=== PATIENT | male | born 1965 | race Caucasian/White ===

== ENCOUNTER 2017-07-09 10:49 | Emergency (ER) | payer MEDICAID ==
[~2017-07-09] VITALS: Ht 180.3 cm; Wt 70.0 kg
[~2017-07-09 10:49] MED LIST: ALPR0.25 PO; AMIO100T4 PO; APIX2.5T PO; ASPI325T80 PO; GABA300C10 PO; METO25TA35 PO; NAPR-856 PO; NICO-487 TD; TRAM-47 PO
[2017-07-09] MEDS ORDERED: SODIUM CHLORIDE 0.9% 1,000ML IVBOLUS ONE (11:30)
[2017-07-09] MEDS ORDERED: LORazepam 2 MG/ML, 1ML IVPush ONE ×2 (11:30→15:30)
[2017-07-09] MEDS ORDERED: ONDANSETRON 2MG/ML, 2ML IVPush ONE (11:30)
[2017-07-09] MEDS ORDERED: THIAMINE 100MG TABLET PO ONE (11:30)
[2017-07-09] MEDS ORDERED: ONDANSETRON 2MG/ML, 2ML ONE (11:36)
[2017-07-09] MEDS ORDERED: THIAMINE 100MG TABLET ONE (11:36)
[2017-07-09] MEDS ORDERED: LORazepam 2 MG/ML, 1ML ONE ×2 (11:36→15:15)
[2017-07-09 11:57] LABS: ALANINE AMINOTRANSFERASE 139 U/L (12-78); ALBUMIN 3.4 g/dL (3.4-5.0); ANION GAP 13 mmol/L (5-15); CALCIUM 7.7 mg/dL (8.5-10.1); CHLORIDE 97 mmol/L (98-107); CREATININE 0.66 mg/dL (0.7-1.3)
[2017-07-09 11:59] LABS: ALKALINE PHOSPHATASE 122 U/L (45-117); BILIRUBIN,TOTAL 0.7 mg/dL (0.2-1.0); TOTAL PROTEIN 6.7 g/dL (6.4-8.2)
[2017-07-09 12:08] LABS: MEAN CORPUSCULAR HEMOGLOBIN 31.8 pg (27.5-34.5); MEAN CORPUSCULAR VOLUME 93.5 fL (81-97); MEAN PLATELET VOLUME 8.7 fL (7.4-10.4); PLATELET COUNT 110 x10^3/uL (130-400); RED BLOOD COUNT 5.05 x10^6/uL (4.38-5.82); RED CELL DISTRIBUTION WIDTH 15.6 % (9.4-14.8)
[2017-07-09 12:09] LABS: BASOPHILS # (AUTO) 0.03 x10^3/uL (0-0.1); BASOPHILS % (AUTO) 0 % (0-1); EOSINOPHILS # (AUTO) 0.01 x10^3/uL (0-0.4); EOSINOPHILS % (AUTO) 0 % (1-7); LYMPHOCYTES # (AUTO) 1.73 x10^3/uL (1-3.4); LYMPHOCYTES % (AUTO) 23 % (22-44); MD SCAN; MONOCYTES % (AUTO) 8 % (2-9); NEUTROPHILS # (AUTO) 5.25 x10^3/uL (1.8-6.8); NEUTROPHILS % (AUTO) 69 % (42-75)
[2017-07-09] MEDS ORDERED: POTASSIUM CHLORIDE 20 MEQ, MAGNESIUM SULFATE 1 GM, FOLIC ACID 1 MG, THIAMINE 100 MG, MV... IV ONE (12:30)
[2017-07-09] MEDS ORDERED: POTASSIUM CHLORIDE 20 MEQ TAB.ER.PRT PO ONE (12:30)
[2017-07-09] MEDS ORDERED: FAMOTIDINE 20 MG/2 ML IVPush ONE (13:00)
[2017-07-09] MEDS ORDERED: MAALOX/HYOSCYAMINE/LIDOCAINE 45 ML BTL PO ONE (13:00)
[2017-07-09] MEDS ORDERED: FAMOTIDINE 20 MG/2 ML ONE (13:01)
[2017-07-09] MEDS ORDERED: MAALOX/HYOSCYAMINE/LIDOCAINE 45 ML BTL ONE (13:01)
[2017-07-09 15:47] LABS: AMPHETAMINE SCREEN, URINE Negative (Negative); BARBITURATE SCREEN, URINE Negative (Negative); BENZODIAZEPINE SCREEN, URINE Negative (Negative); CANNABINOID SCREEN, URINE Negative (Negative); COCAINE SCREEN, URINE Negative (Negative); METHADONE SCREEN, URINE Negative (Negative); OPIATE SCREEN, URINE Negative (Negative)
[2017-07-09 17:15] VITALS: BP 112/70
== END 2017-07-09 17:17 | disposition home or self-care (01) ==
LOC: ED 11:29
DX: F10.220 Alcohol dependence with intoxication, uncomplicated (principal); F17.200 Nicotine dependence, unspecified, uncomplicated; I10 Essential (primary) hypertension; I48.91 Unspecified atrial fibrillation; J44.9 Chronic obstructive pulmonary disease, unspecified
CPT/HCPCS: 36415; 80053; 80307; 83690; 85025; 96361; 96365; 96366; 96375; 96376; 99285; J2060; J2405; J3411; J3475; J3480; J7030; J7042; S0028

== ENCOUNTER 2017-07-25 05:45 | Inpatient (IN) | payer MEDICAID ==
[~2017-07-25] VITALS: Ht 180.3 cm; Wt 69.7 kg
[2017-07-25] MEDS ORDERED: SODIUM CHLORIDE 0.9% 1,000ML IVBOLUS ONE (06:00)
[2017-07-25] MEDS ORDERED: THIAMINE 100 MG in SODIUM CHLORIDE 0.9% 50 ML IVPB ONE (06:00)
[2017-07-25] MEDS ORDERED: LORazepam 2 MG/ML, 1ML IVPush PRN (06:00)
[2017-07-25] MEDS ORDERED: ONDANSETRON 2MG/ML, 2ML IVPush ONE (06:00)
[2017-07-25] MEDS ORDERED: SODIUM CHLORIDE FLUSH 10ML SYR IVF ONE (06:00)
[2017-07-25] MEDS ORDERED: ONDANSETRON 2MG/ML, 2ML ONE (06:02)
[2017-07-25] MEDS ORDERED: LORazepam 2 MG/ML, 1ML ONE (06:02)
[2017-07-25 06:29] LABS: ALANINE AMINOTRANSFERASE 170 U/L (12-78); ALBUMIN 3.4 g/dL (3.4-5.0); ANION GAP 10 mmol/L (5-15); CALCIUM 8.1 mg/dL (8.5-10.1); CHLORIDE 111 mmol/L (98-107); CREATININE 0.77 mg/dL (0.7-1.3)
[2017-07-25 06:32] LABS: ALKALINE PHOSPHATASE 141 U/L (45-117); BILIRUBIN,TOTAL 0.3 mg/dL (0.2-1.0)
[2017-07-25 06:37] LABS: MEAN CORPUSCULAR HEMOGLOBIN 31.8 pg (27.5-34.5); MEAN CORPUSCULAR HGB CONC 33.9 g/dL (33.2-36.2); MEAN CORPUSCULAR VOLUME 93.8 fL (81-97); MEAN PLATELET VOLUME 7.7 fL (7.4-10.4); PLATELET COUNT 280 x10^3/uL (130-400); RED BLOOD COUNT 4.93 x10^6/uL (4.38-5.82); RED CELL DISTRIBUTION WIDTH 17.5 % (9.4-14.8)
[2017-07-25 06:54] LABS: MD YES
[2017-07-25 06:57] LABS: LYMPH#(MANUAL) 2.02 x10^3/uL (1-3.4); LYMPHS% (MANUAL) 47 % (22-44); MONOS% (MANUAL) 7 % (2-9); SEG#(MANUAL) 1.98 x10^3/uL (1.8-6.8); SEGS% (MANUAL) 46 % (42-75)
[2017-07-25 06:58] LABS: ANISOCYTOSIS 1+
[2017-07-25 06:59] LABS: <PLATELET ESTIMATE> ADEQUATE; <PLT MORPHOLOGY> NORMAL PLT MORPH
[2017-07-25 07:05] LABS: INTERNATIONAL NORMALIZED RATIO 0.97 (0.93-1.1)
[2017-07-25] MEDS ORDERED: LORazepam 1MG TABLET PO PRN ×4 (08:30→18:00)
[2017-07-25] MEDS ORDERED: THIAMINE 200 MG in DEXTROSE 5% 50 ML IVPB ONE (08:30)
[2017-07-25] MEDS ORDERED: DIPHENHYDRAMINE 50 MG CAPSULE PO PRN (08:30)
[2017-07-25] MEDS ORDERED: FOLIC ACID 5 MG/ML IM ONE (08:30)
[2017-07-25] MEDS ORDERED: CHLORDIAZEPOXIDE 25 MG CAPSULE PO PRN ×2 (08:30)
[2017-07-25] MEDS: ENOXAPARIN 40 MG/0.4 ML SQ SCH ×2 (08:30→09:12)
[2017-07-25] MEDS ORDERED: LABETALOL 5MG/ML, 20ML IV PRN (08:30)
[2017-07-25] MEDS ORDERED: PROMETHAZINE 12.5 MG SUPP PR PRN (08:30)
[2017-07-25] MEDS ORDERED: ACETAMINOPHEN 325 MG TABLET PO PRN (08:30)
[2017-07-25 08:44] VITALS: BP 122/74
[2017-07-25] MEDS: MULTIVITAMINS/MINERALS TABLET PO SCH (09:00)
[2017-07-25] MEDS: MAGNESIUM CHLORIDE 64 MG TABLET.DR PO SCH ×3 (09:11→21:00)
[2017-07-25] MEDS: PROMETHAZINE 25MG TABLET PO PRN (09:11)
[2017-07-25] MEDS: CHLORDIAZEPOXIDE 25 MG CAPSULE PO PRN ×2 (09:21→16:29)
[2017-07-25] MEDS: GABAPENTIN 300 MG CAPSULE PO SCH ×3 (09:21→21:00)
[2017-07-25] MEDS: METOPROLOL TARTRATE 25 MG TABLET PO SCH (09:21)
[2017-07-25] MEDS ORDERED: THIAMINE 100MG TABLET PO ONE (09:30)
[2017-07-25] MEDS ORDERED: FOLIC ACID 1 MG TABLET PO ONE (09:30)
[2017-07-25] MEDS: NS + 40MEQ KCL 1,000 ML IV SCH ×2 (10:39→16:30)
[2017-07-25] MEDS: CHLORDIAZEPOXIDE 10 MG CAPSULE PO PRN ×2 (11:57→14:04)
[2017-07-25 13:43] VITALS: BP 105/63
[2017-07-25] MEDS: ONDANSETRON 2MG/ML, 2ML IV PRN ×2 (14:58→21:47)
[2017-07-25] MEDS ORDERED: LORazepam 0.5MG TABLET PO PRN (18:00)
[2017-07-25] MEDS ORDERED: LORazepam 2 MG/ML, 1ML IV PRN ×3 (18:00)
[2017-07-25] MEDS: LORazepam 2 MG/ML, 1ML IV PRN ×2 (18:05→21:58)
[2017-07-25] MEDS: NS + 20MEQ KCL 1,000 ML IV SCH (18:05)
[2017-07-25] MEDS: CHLORDIAZEPOXIDE 25 MG CAPSULE PO SCH (21:00)
[2017-07-25 21:54] VITALS: BP 110/70
[2017-07-26 00:47] VITALS: BP 145/89
[2017-07-26] MEDS: LORazepam 2 MG/ML, 1ML IV PRN ×5 (01:33→14:44)
[2017-07-26] MEDS: PROMETHAZINE 25MG TABLET PO PRN (01:33)
[2017-07-26] MEDS: NS + 20MEQ KCL 1,000 ML IV SCH ×2 (04:15→14:23)
[2017-07-26 05:28] LABS: ALANINE AMINOTRANSFERASE 125 U/L (12-78); ALBUMIN 2.9 g/dL (3.4-5.0); ANION GAP 8 mmol/L (5-15); CALCIUM 8.2 mg/dL (8.5-10.1); CHLORIDE 106 mmol/L (98-107); CREATININE 0.65 mg/dL (0.7-1.3)
[2017-07-26 05:29] LABS: ALKALINE PHOSPHATASE 118 U/L (45-117); BILIRUBIN,TOTAL 0.9 mg/dL (0.2-1.0); TOTAL PROTEIN 6.1 g/dL (6.4-8.2)
[2017-07-26] MEDS ORDERED: NICOTINE 21 MG/24 HR PATCH.TD24 TD SCH (05:30)
[2017-07-26 05:33] LABS: BASOPHILS # (AUTO) 0.04 x10^3/uL (0-0.1); BASOPHILS % (AUTO) 1 % (0-1); EOSINOPHILS # (AUTO) 0.03 x10^3/uL (0-0.4); EOSINOPHILS % (AUTO) 1 % (1-7); LYMPHOCYTES # (AUTO) 1.88 x10^3/uL (1-3.4); LYMPHOCYTES % (AUTO) 31 % (22-44); MD NO; MEAN CORPUSCULAR HGB CONC 33.8 g/dL (33.2-36.2); MEAN CORPUSCULAR VOLUME 94.6 fL (81-97); MEAN PLATELET VOLUME 7.9 fL (7.4-10.4); MONOCYTES # (AUTO) 0.93 x10^3/uL (0.2-0.8); MONOCYTES % (AUTO) 15 % (2-9); NEUTROPHILS # (AUTO) 3.18 x10^3/uL (1.8-6.8); NEUTROPHILS % (AUTO) 53 % (42-75); PLATELET COUNT 224 x10^3/uL (130-400); RED BLOOD COUNT 4.58 x10^6/uL (4.38-5.82); RED CELL DISTRIBUTION WIDTH 16.6 % (9.4-14.8)
[2017-07-26 07:57] VITALS: BP 116/78
[2017-07-26] MEDS: MAGNESIUM CHLORIDE 64 MG TABLET.DR PO SCH ×2 (08:20→16:39)
[2017-07-26] MEDS: ENOXAPARIN 40 MG/0.4 ML SQ SCH (08:20)
[2017-07-26] MEDS: GABAPENTIN 300 MG CAPSULE PO SCH ×2 (08:21→16:39)
[2017-07-26] MEDS: MULTIVITAMINS/MINERALS TABLET PO SCH (08:21)
[2017-07-26] MEDS: METOPROLOL TARTRATE 25 MG TABLET PO SCH (08:21)
[2017-07-26] MEDS: CHLORDIAZEPOXIDE 25 MG CAPSULE PO SCH ×2 (10:32→16:39)
[2017-07-26 12:50] LABS: CLOSTRIDIUM DIFFICILE ANTIGEN NEGATIVE; CLOSTRIDIUM DIFFICILE TOXIN NEGATIVE (Negative)
[2017-07-26 13:59] VITALS: BP 123/86
[2017-07-26] MEDS ORDERED: CHLORDIAZEPOXIDE 25 MG CAPSULE PO SCH (16:00)
[2017-07-27] MEDS ORDERED: CHLORDIAZEPOXIDE 25 MG CAPSULE PO SCH (16:00)
== END 2017-07-26 17:10 | disposition left against medical advice (07) | DRG 439 ==
LOC: ED 05:59 → EDIP 07:30 → 4WST 08:38
PROVIDERS: ADMIT Internal Medicine; ATTEND Internal Medicine
DX: K85.20 Alcohol induced acute pancreatitis without necrosis or infection (principal); F10.239 Alcohol dependence with withdrawal, unspecified; D68.59 Other primary thrombophilia; G62.9 Polyneuropathy, unspecified; I48.91 Unspecified atrial fibrillation; F10.229 Alcohol dependence with intoxication, unspecified; E87.6 Hypokalemia; I10 Essential (primary) hypertension; J44.9 Chronic obstructive pulmonary disease, unspecified; R73.9 Hyperglycemia, unspecified; Z88.5 Allergy status to narcotic agent; Z91.19 Patient's noncompliance with other medical treatment and regimen; Z88.8 Allergy status to other drugs, medicaments and biological substances; Z79.82 Long term (current) use of aspirin; Z79.899 Other long term (current) drug therapy
CPT/HCPCS: 36415; 80053; 80307; 82962; 83690; 83735; 84100; 85025; 85610; 87324; 93005; J1650; J2405; J3480; Q0169; J2060; J7030

== ENCOUNTER 2017-08-28 04:35 | Inpatient (IN) | payer MEDICAID ==
[~2017-08-28] VITALS: Ht 180.3 cm; Wt 68.4 kg
[2017-08-28] MEDS ORDERED: METOPROLOL 1 MG/ML, 5ML IVPush STA (05:13)
[2017-08-28] MEDS ORDERED: METOPROLOL 1 MG/ML, 5ML ONE ×2 (05:16→10:07)
[2017-08-28] MEDS ORDERED: FENTANYL PF 100 MCG/2ML ONE ×2 (05:20→08:14)
[2017-08-28] MEDS: FENTANYL PF 100 MCG/2ML IVPush PRN ×2 (05:26→08:19)
[2017-08-28 05:46] LABS: BASOPHILS # (AUTO) 0.03 x10^3/uL (0-0.1); BASOPHILS % (AUTO) 1 % (0-1); EOSINOPHILS # (AUTO) 0.02 x10^3/uL (0-0.4); EOSINOPHILS % (AUTO) 0 % (1-7); LYMPHOCYTES # (AUTO) 2.44 x10^3/uL (1-3.4); LYMPHOCYTES % (AUTO) 42 % (22-44); MD NO; MEAN CORPUSCULAR HEMOGLOBIN 32.9 pg (27.5-34.5); MEAN CORPUSCULAR HGB CONC 34.1 g/dL (33.2-36.2); MEAN CORPUSCULAR VOLUME 96.6 fL (81-97); MEAN PLATELET VOLUME 8.5 fL (7.4-10.4); MONOCYTES # (AUTO) 0.64 x10^3/uL (0.2-0.8); MONOCYTES % (AUTO) 11 % (2-9); NEUTROPHILS # (AUTO) 2.76 x10^3/uL (1.8-6.8); NEUTROPHILS % (AUTO) 47 % (42-75); PLATELET COUNT 119 x10^3/uL (130-400); RED BLOOD COUNT 4.78 x10^6/uL (4.38-5.82); RED CELL DISTRIBUTION WIDTH 17.3 % (9.4-14.8)
[2017-08-28] MEDS ORDERED: LORazepam 2 MG/ML, 1ML ONE ×3 (05:53→10:30)
[2017-08-28 05:58] LABS: ALBUMIN 3.3 g/dL (3.4-5.0); ANION GAP 11 mmol/L (5-15); CALCIUM 7.8 mg/dL (8.5-10.1); CHLORIDE 106 mmol/L (98-107); CREATININE 0.66 mg/dL (0.7-1.3)
[2017-08-28] MEDS ORDERED: LORazepam 2 MG/ML, 1ML IVPush ONE ×2 (06:00→09:00)
[2017-08-28 06:01] LABS: TROPONIN I < 0.015 ng/mL (0.000-0.045)
[2017-08-28] MEDS ORDERED: LORazepam 2 MG/ML, 1ML IVPush PRN (08:30)
[2017-08-28] MEDS ORDERED: METOPROLOL 1 MG/ML, 5ML IVPush ONE (10:30)
[2017-08-28] MEDS ORDERED: VERAPAMIL 2.5 MG/ML, 2ML IVPush ONE (10:30)
[2017-08-28 10:32] LABS: ALBUMIN 3.2 g/dL (3.4-5.0); BILIRUBIN, DIRECT 0.2 mg/dL (0.1-0.2)
[2017-08-28 10:34] LABS: BILIRUBIN,INDIRECT 0.5 mg/dL (0.0-2.0); BILIRUBIN,TOTAL 0.7 mg/dL (0.2-1.0); TOTAL PROTEIN 6.9 g/dL (6.4-8.2)
[2017-08-28] MEDS ORDERED: VERAPAMIL 2.5 MG/ML, 2ML ONE (10:49)
[2017-08-28] MEDS ORDERED: ESMOLOL/NS PMX 250 ML IV PRN (11:00)
[2017-08-28] MEDS ORDERED: LORazepam 1MG TABLET PO PRN ×2 (11:30)
[2017-08-28] MEDS ORDERED: LORazepam 2 MG/ML, 1ML IV PRN ×3 (11:30)
[2017-08-28] MEDS ORDERED: LORazepam 0.5MG TABLET PO PRN (11:30)
[2017-08-28] MEDS ORDERED: ONDANSETRON 2MG/ML, 2ML IVPush PRN (12:00)
[2017-08-28 12:20] VITALS: BP 109/76
[2017-08-28] MEDS ORDERED: SUCRALFATE 1 GM/10 ML UDC ONE (12:41)
[2017-08-28] MEDS ORDERED: NICOTINE 14MG/24 HR PATCH.TD24 ONE (12:41)
[2017-08-28] MEDS ORDERED: ENOXAPARIN 40 MG/0.4 ML ONE (12:41)
[2017-08-28] MEDS ORDERED: CHLORDIAZEPOXIDE 5 MG CAPSULE ONE ×3 (12:42→19:48)
[2017-08-28] MEDS ORDERED: LORazepam 1MG TABLET ONE (12:43)
[2017-08-28] MEDS: ENOXAPARIN 40 MG/0.4 ML SQ SCH (12:44)
[2017-08-28] MEDS: LORazepam 1MG TABLET PO PRN ×2 (12:45→17:24)
[2017-08-28] MEDS: CHLORDIAZEPOXIDE 25 MG CAPSULE PO SCH ×3 (12:45→19:53)
[2017-08-28] MEDS: NICOTINE 14MG/24 HR PATCH.TD24 TD SCH (12:46)
[2017-08-28] MEDS: SUCRALFATE 1 GM/10 ML UDC PO SCH ×3 (12:46→19:53)
[2017-08-28] MEDS: LORazepam 2 MG/ML, 1ML IV PRN ×2 (14:37→23:55)
[2017-08-28] MEDS: SODIUM CHLORIDE 0.9% 1,000 ML IV SCH (14:51)
[2017-08-28] MEDS ORDERED: DILTIAZEM 30 MG TABLET PO SCH (15:00)
[2017-08-28] MEDS ORDERED: OMNIPAQUE 350 MG/ML, 150 ML BOTTLE ONE (16:56)
[2017-08-28] MEDS: POTASSIUM CHLORIDE 20 MEQ, MAGNESIUM SULFATE 1 GM, THIAMINE 100 MG, FOLIC ACID 1 MG, MV... IV SCH (17:24)
[2017-08-28] MEDS ORDERED: MAGNESIUM SULFATE PMX 2GM/50ML 50 ML IV ONE (17:30)
[2017-08-28] MEDS: METOPROLOL TARTRATE 25 MG TABLET PO SCH (17:35)
[2017-08-28] MEDS ORDERED: METOPROLOL TARTRATE 25 MG TABLET PO SCH (18:00)
[2017-08-28 18:47] VITALS: BP 123/85
[2017-08-28] MEDS: ONDANSETRON ODT 4 MG PO PRN (18:49)
[2017-08-28 19:32] LABS: CLOSTRIDIUM DIFFICILE ANTIGEN NEGATIVE; CLOSTRIDIUM DIFFICILE TOXIN NEGATIVE (Negative)
[2017-08-28] MEDS: TAMSULOSIN 0.4 MG CAP.ER.24H PO SCH (19:53)
[2017-08-28] MEDS: DILTIAZEM 30 MG TABLET PO SCH (19:53)
[2017-08-28] MEDS: PANTOPRAZOLE 40 MG IV IVPush SCH (19:54)
[2017-08-29 00:56] VITALS: BP 115/75
[2017-08-29] MEDS: LORazepam 2 MG/ML, 1ML IV PRN ×2 (00:56→14:46)
[2017-08-29] MEDS ORDERED: HALOPERIDOL 5 MG/ML IV ONE (03:00)
[2017-08-29] MEDS: DILTIAZEM 30 MG TABLET PO SCH ×4 (03:13→20:16)
[2017-08-29 05:36] LABS: MEAN CORPUSCULAR HEMOGLOBIN 33.3 pg (27.5-34.5); MEAN CORPUSCULAR HGB CONC 34.5 g/dL (33.2-36.2); MEAN CORPUSCULAR VOLUME 96.7 fL (81-97); RED CELL DISTRIBUTION WIDTH 16.6 % (9.4-14.8)
[2017-08-29 06:24] LABS: BASOPHILS # (AUTO) 0.02 x10^3/uL (0-0.1); BASOPHILS % (AUTO) 1 % (0-1); EOSINOPHILS # (AUTO) 0.01 x10^3/uL (0-0.4); EOSINOPHILS % (AUTO) 0 % (1-7); LYMPHOCYTES # (AUTO) 1.42 x10^3/uL (1-3.4); LYMPHOCYTES % (AUTO) 28 % (22-44); MD SCAN; MEAN PLATELET VOLUME 8.8 fL (7.4-10.4); MONOCYTES # (AUTO) 0.69 x10^3/uL (0.2-0.8); MONOCYTES % (AUTO) 14 % (2-9); NEUTROPHILS # (AUTO) 2.98 x10^3/uL (1.8-6.8); NEUTROPHILS % (AUTO) 58 % (42-75); PLATELET COUNT 95 x10^3/uL (130-400)
[2017-08-29 06:38] LABS: CHLORIDE 105 mmol/L (98-107)
[2017-08-29] MEDS: METOPROLOL TARTRATE 25 MG TABLET PO SCH ×2 (06:39→20:16)
[2017-08-29 06:42] LABS: ALANINE AMINOTRANSFERASE 72 U/L (12-78); ALKALINE PHOSPHATASE 109 U/L (45-117); ANION GAP 10 mmol/L (5-15); CALCIUM 8.1 mg/dL (8.5-10.1); CREATININE 0.49 mg/dL (0.7-1.3); TOTAL PROTEIN 5.9 g/dL (6.4-8.2)
[2017-08-29] MEDS: SUCRALFATE 1 GM/10 ML UDC PO SCH ×4 (07:00→20:16)
[2017-08-29] MEDS ORDERED: PANTOPRAZOLE 40 MG IV IVPush SCH (07:30)
[2017-08-29 08:00] VITALS: BP 111/74
[2017-08-29] MEDS: PANTOPRAZOLE 40 MG IV IVPush SCH ×2 (08:44→20:16)
[2017-08-29] MEDS ORDERED: LORazepam 2 MG/ML, 1ML IV PRN ×4 (09:00→09:30)
[2017-08-29] MEDS ORDERED: LORazepam 0.5MG TABLET PO PRN (09:30)
[2017-08-29] MEDS ORDERED: LORazepam 1MG TABLET PO PRN ×3 (09:30)
[2017-08-29] MEDS: SODIUM CHLORIDE 0.9% 1,000 ML IV SCH ×2 (11:00→20:20)
[2017-08-29] MEDS ORDERED: ESMOLOL/NS PMX 250 ML IV PRN ×2 (11:00)
[2017-08-29] MEDS: NICOTINE 14MG/24 HR PATCH.TD24 TD SCH (11:22)
[2017-08-29] MEDS: ENOXAPARIN 40 MG/0.4 ML SQ SCH (11:25)
[2017-08-29] MEDS: POTASSIUM CHLORIDE 20 MEQ, MAGNESIUM SULFATE 1 GM, THIAMINE 100 MG, FOLIC ACID 1 MG, MV... IV SCH (12:24)
[2017-08-29 13:26] VITALS: BP 117/77
[2017-08-29] MEDS: ONDANSETRON ODT 4 MG PO PRN (14:46)
[2017-08-29 19:30] VITALS: BP 108/79
[2017-08-29] MEDS: TAMSULOSIN 0.4 MG CAP.ER.24H PO SCH (20:16)
[2017-08-30 01:12] VITALS: BP 135/88
[2017-08-30] MEDS: DILTIAZEM 30 MG TABLET PO SCH ×2 (02:46→07:57)
[2017-08-30] MEDS: LORazepam 2 MG/ML, 1ML IV PRN ×9 (04:14→22:14)
[2017-08-30] MEDS: METOPROLOL TARTRATE 25 MG TABLET PO SCH ×2 (04:22→16:06)
[2017-08-30] MEDS: SUCRALFATE 1 GM/10 ML UDC PO SCH ×4 (04:23→20:32)
[2017-08-30 05:30] LABS: CHLORIDE 105 mmol/L (98-107)
[2017-08-30 05:44] LABS: ANION GAP 10 mmol/L (5-15); CALCIUM 7.8 mg/dL (8.5-10.1)
[2017-08-30] MEDS: SODIUM CHLORIDE 0.9% 1,000 ML IV SCH ×2 (06:12→23:39)
[2017-08-30 06:43] LABS: BASOPHILS # (AUTO) 0.04 x10^3/uL (0-0.1); BASOPHILS % (AUTO) 1 % (0-1); EOSINOPHILS # (AUTO) 0.03 x10^3/uL (0-0.4); EOSINOPHILS % (AUTO) 1 % (1-7); LYMPHOCYTES # (AUTO) 1.22 x10^3/uL (1-3.4); LYMPHOCYTES % (AUTO) 21 % (22-44); MD SCAN; MEAN CORPUSCULAR HEMOGLOBIN 32.8 pg (27.5-34.5); MEAN CORPUSCULAR HGB CONC 34.1 g/dL (33.2-36.2); MEAN CORPUSCULAR VOLUME 96.3 fL (81-97); MEAN PLATELET VOLUME 9.2 fL (7.4-10.4); MONOCYTES # (AUTO) 0.88 x10^3/uL (0.2-0.8); MONOCYTES % (AUTO) 15 % (2-9); NEUTROPHILS # (AUTO) 3.58 x10^3/uL (1.8-6.8); NEUTROPHILS % (AUTO) 62 % (42-75); PLATELET COUNT 105 x10^3/uL (130-400); RED BLOOD COUNT 4.46 x10^6/uL (4.38-5.82); RED CELL DISTRIBUTION WIDTH 15.9 % (9.4-14.8)
[2017-08-30 07:38] VITALS: BP 128/86
[2017-08-30] MEDS: PANTOPRAZOLE 40 MG IV IVPush SCH (07:54)
[2017-08-30] MEDS: ALUMINUM/MAG/SIMETHICONE 30 ML UDC PO SCH ×3 (09:28→20:32)
[2017-08-30] MEDS: ENOXAPARIN 40 MG/0.4 ML SQ SCH (11:16)
[2017-08-30] MEDS: NICOTINE 14MG/24 HR PATCH.TD24 TD SCH (11:24)
[2017-08-30] MEDS: NEUTRA PHOS K 250 MG TABLET PO SCH ×3 (11:25→20:32)
[2017-08-30] MEDS: POTASSIUM CHLORIDE 20 MEQ, MAGNESIUM SULFATE 1 GM, THIAMINE 100 MG, FOLIC ACID 1 MG, MV... IV SCH (12:03)
[2017-08-30] MEDS: DILTIAZEM 120 MG CAP.ER.24H PO SCH (12:46)
[2017-08-30 14:06] LABS: OCCULT BLOOD NEGATIVE (NEGATIVE)
[2017-08-30 15:00] VITALS: BP 133/92
[2017-08-30] MEDS ORDERED: LORazepam 20 MG in DEXTROSE 5% 240 ML IV SCH (16:30)
[2017-08-30] MEDS ORDERED: LORazepam 2 MG/ML, 1ML IV PRN ×3 (18:00)
[2017-08-30] MEDS: ONDANSETRON ODT 4 MG PO PRN (18:23)
[2017-08-30 19:48] VITALS: BP 116/77
[2017-08-30] MEDS: PANTOPROZOLE 40MG TABLET PO SCH (20:32)
[2017-08-30] MEDS: TAMSULOSIN 0.4 MG CAP.ER.24H PO SCH (20:32)
[2017-08-31 00:58] VITALS: BP 107/75
[2017-08-31] MEDS: LORazepam 2 MG/ML, 1ML IV PRN ×3 (02:30→06:13)
[2017-08-31 05:38] LABS: BASOPHILS # (AUTO) 0.06 x10^3/uL (0-0.1); BASOPHILS % (AUTO) 1 % (0-1); EOSINOPHILS # (AUTO) 0.07 x10^3/uL (0-0.4); EOSINOPHILS % (AUTO) 1 % (1-7); LYMPHOCYTES # (AUTO) 1.49 x10^3/uL (1-3.4); LYMPHOCYTES % (AUTO) 24 % (22-44); MD NO; MEAN CORPUSCULAR HEMOGLOBIN 32.4 pg (27.5-34.5); MEAN CORPUSCULAR HGB CONC 33.6 g/dL (33.2-36.2); MEAN CORPUSCULAR VOLUME 96.5 fL (81-97); MONOCYTES # (AUTO) 0.92 x10^3/uL (0.2-0.8); MONOCYTES % (AUTO) 15 % (2-9); NEUTROPHILS # (AUTO) 3.73 x10^3/uL (1.8-6.8); NEUTROPHILS % (AUTO) 60 % (42-75); PLATELET COUNT 112 x10^3/uL (130-400); RED BLOOD COUNT 4.38 x10^6/uL (4.38-5.82); RED CELL DISTRIBUTION WIDTH 15.8 % (9.4-14.8)
[2017-08-31 05:46] LABS: CHLORIDE 107 mmol/L (98-107)
[2017-08-31 05:47] VITALS: BP 120/86
[2017-08-31 05:59] LABS: ALANINE AMINOTRANSFERASE 53 U/L (12-78); ALBUMIN 2.8 g/dL (3.4-5.0); ALKALINE PHOSPHATASE 107 U/L (45-117); ANION GAP 9 mmol/L (5-15); BILIRUBIN,TOTAL 0.7 mg/dL (0.2-1.0); CALCIUM 8.2 mg/dL (8.5-10.1); CREATININE 0.69 mg/dL (0.7-1.3); TOTAL PROTEIN 5.9 g/dL (6.4-8.2)
[2017-08-31] MEDS: METOPROLOL TARTRATE 25 MG TABLET PO SCH (06:13)
[2017-08-31] MEDS: SUCRALFATE 1 GM/10 ML UDC PO SCH ×2 (06:13→12:07)
[2017-08-31] MEDS: ALUMINUM/MAG/SIMETHICONE 30 ML UDC PO SCH ×2 (06:13→11:00)
[2017-08-31 06:35] VITALS: BP 121/84
[2017-08-31] MEDS: PANTOPROZOLE 40MG TABLET PO SCH (07:53)
[2017-08-31] MEDS: DILTIAZEM 120 MG CAP.ER.24H PO SCH (07:53)
[2017-08-31] MEDS: NICOTINE 14MG/24 HR PATCH.TD24 TD SCH (07:54)
[2017-08-31] MEDS ORDERED: CHLORDIAZEPOXIDE 25 MG CAPSULE PO PRN ×3 (08:00)
[2017-08-31] MEDS ORDERED: LORazepam 1MG TABLET PO PRN ×4 (08:00)
[2017-08-31] MEDS ORDERED: LORazepam 0.5MG TABLET PO PRN (08:00)
[2017-08-31] MEDS ORDERED: CHLORDIAZEPOXIDE 10 MG CAPSULE PO PRN (08:00)
[2017-08-31] MEDS: ONDANSETRON ODT 4 MG PO PRN (08:09)
[2017-08-31] MEDS: SODIUM CHLORIDE 0.9% 1,000 ML IV SCH (09:39)
[2017-08-31] MEDS: POTASSIUM CHLORIDE 20 MEQ, MAGNESIUM SULFATE 1 GM, THIAMINE 100 MG, FOLIC ACID 1 MG, MV... IV SCH (11:30)
[2017-08-31] MEDS: ENOXAPARIN 40 MG/0.4 ML SQ SCH (12:00)
[2017-08-31] MEDS ORDERED: PANT40TA5 PO (13:30)
[2017-08-31] MEDS ORDERED: NICO-486 TD (13:30)
[2017-08-31] MEDS ORDERED: TAMS-11 PO (13:30)
[2017-08-31] MEDS ORDERED: METO25TA35 PO (13:30)
[2017-08-31] MEDS ORDERED: SUCR1ORA5 PO (13:30)
[2017-08-31] MEDS ORDERED: DILT120C9 PO (13:53)
== END 2017-08-31 15:40 | disposition home or self-care (01) | DRG 432 ==
LOC: ED 07:28 → EDIP 10:29 → 5SO 12:59
PROVIDERS: ADMIT Internal Medicine; ATTEND Internal Medicine
DX: K70.10 Alcoholic hepatitis without ascites (principal); K85.20 Alcohol induced acute pancreatitis without necrosis or infection; D68.69 Other thrombophilia; D69.6 Thrombocytopenia, unspecified; E83.39 Other disorders of phosphorus metabolism; E83.51 Hypocalcemia; G62.9 Polyneuropathy, unspecified; I48.2 Chronic atrial fibrillation; F10.239 Alcohol dependence with withdrawal, unspecified; E87.2 Acidosis; R74.0 Nonspecific elevation of levels of transaminase and lactic acid dehydrogenase [LDH]; E87.6 Hypokalemia; F17.210 Nicotine dependence, cigarettes, uncomplicated; D64.9 Anemia, unspecified; K20.9 Esophagitis, unspecified; I10 Essential (primary) hypertension; J44.9 Chronic obstructive pulmonary disease, unspecified; K59.00 Constipation, unspecified; N40.0 Benign prostatic hyperplasia without lower urinary tract symptoms; Z91.14 Patient's other noncompliance with medication regimen; Z79.01 Long term (current) use of anticoagulants; Z80.9 Family history of malignant neoplasm, unspecified; Z82.49 Family history of ischemic heart disease and other diseases of the circulatory system; Z91.19 Patient's noncompliance with other medical treatment and regimen; Z91.81 History of falling; Z88.5 Allergy status to narcotic agent; Z88.8 Allergy status to other drugs, medicaments and biological substances
CPT/HCPCS: 36415; 74022; 74220; 80048; 80053; 80076; 82040; 82272; 83605; 83690; 83735; 83880; 84100; 84484; 85025; 87324; 93005; 96372; 96374; 96375; 96376; J1650; J3010; J3411; J3475; J3480; Q0162; Q9967; C9113; J1630; J2060; J7030

== ENCOUNTER 2017-11-28 04:44 | Emergency (ER) | payer MEDICAID ==
[~2017-11-28] VITALS: Ht 177.8 cm; Wt 74.0 kg
[~2017-11-28 04:44] MED LIST changes: +AMIO200T42 PO; +ASPI-515 PO; +DILT120C9 PO; +FOLI-17 PO; +NALT50TA PO; +NICO-486 TD; +PANT40TA5 PO; +SUCR1ORA5 PO; +TAMS-11 PO; +THIA100T6 PO
[2017-11-28] MEDS ORDERED: THIAMINE 100MG TABLET ONE (05:15)
[2017-11-28] MEDS ORDERED: LORazepam 2 MG/ML, 1ML ONE ×3 (05:16→07:25)
[2017-11-28 05:27] LABS: BASOPHILS # (AUTO) 0.05 x10^3/uL (0-0.1); BASOPHILS % (AUTO) 1 % (0-1); EOSINOPHILS # (AUTO) 0.02 x10^3/uL (0-0.4); EOSINOPHILS % (AUTO) 0 % (1-7); LYMPHOCYTES # (AUTO) 1.57 x10^3/uL (1-3.4); LYMPHOCYTES % (AUTO) 29 % (22-44); MD NO; MEAN CORPUSCULAR HGB CONC 33.8 g/dL (33.2-36.2); MEAN CORPUSCULAR VOLUME 97.6 fL (81-97); MEAN PLATELET VOLUME 7.9 fL (7.4-10.4); MONOCYTES # (AUTO) 0.76 x10^3/uL (0.2-0.8); MONOCYTES % (AUTO) 14 % (2-9); NEUTROPHILS # (AUTO) 3.07 x10^3/uL (1.8-6.8); NEUTROPHILS % (AUTO) 56 % (42-75); PLATELET COUNT 233 x10^3/uL (130-400); RED BLOOD COUNT 4.28 x10^6/uL (4.38-5.82); RED CELL DISTRIBUTION WIDTH 15.3 % (9.4-14.8)
[2017-11-28] MEDS ORDERED: SODIUM CHLORIDE 0.9% 1,000ML IVBOLUS ONE (05:30)
[2017-11-28] MEDS ORDERED: THIAMINE 100MG TABLET PO ONE (05:30)
[2017-11-28] MEDS ORDERED: SODIUM CHLORIDE FLUSH 10ML SYR IVF ONE (05:30)
[2017-11-28] MEDS: LORazepam 2 MG/ML, 1ML IVPush PRN ×3 (05:35→07:26)
[2017-11-28 05:41] LABS: ALBUMIN 3.8 g/dL (3.4-5.0); ANION GAP 12 mmol/L (5-15); CALCIUM 8.8 mg/dL (8.5-10.1); CHLORIDE 107 mmol/L (98-107)
[2017-11-28 05:45] LABS: ALANINE AMINOTRANSFERASE 76 U/L (12-78); ALKALINE PHOSPHATASE 93 U/L (45-117); BILIRUBIN,TOTAL 0.5 mg/dL (0.2-1.0); CREATININE 0.74 mg/dL (0.7-1.3); TOTAL PROTEIN 7.4 g/dL (6.4-8.2)
[2017-11-28 05:49] LABS: TROPONIN I < 0.015 ng/mL (0.000-0.045)
[2017-11-28] MEDS ORDERED: CHLORDIAZEPOXIDE 25 MG CAPSULE ONE (07:54)
[2017-11-28] MEDS ORDERED: CHLORDIAZEPOXIDE 25 MG CAPSULE PO ONE (08:00)
[2017-11-28] MEDS ORDERED: LORazepam 2 MG/ML, 1ML IVPush PRN (08:00)
[2017-11-28 08:46] VITALS: BP 125/90
== END 2017-11-28 08:49 | disposition home or self-care (01) ==
LOC: ED 08:00
DX: R07.89 Other chest pain (principal); F10.239 Alcohol dependence with withdrawal, unspecified; R45.4 Irritability and anger; Z91.19 Patient's noncompliance with other medical treatment and regimen; J44.9 Chronic obstructive pulmonary disease, unspecified; I48.91 Unspecified atrial fibrillation
CPT/HCPCS: 36415; 71045; 80053; 80307; 84484; 85025; 93005; 96374; 96376; 99285; J2060; J7030

== ENCOUNTER 2017-12-08 12:39 | Emergency (ER) | payer MEDICAID ==
[~2017-12-08] VITALS: Ht 180.3 cm; Wt 73.5 kg
[2017-12-08] MEDS ORDERED: DILTIAZEM 125 MG in DEXTROSE 5% 100 ML IV SCH (12:48)
[2017-12-08] MEDS ORDERED: SODIUM CHLORIDE 0.9% 1,000 ML IV ONE (12:48)
[2017-12-08 12:49] VITALS: BP 124/94
[2017-12-08] MEDS ORDERED: THIAMINE 100 MG in SODIUM CHLORIDE 0.9% 50 ML IVPB ONE (13:00)
[2017-12-08] MEDS ORDERED: SODIUM CHLORIDE FLUSH 10ML SYR IVF ONE (13:00)
[2017-12-08] MEDS ORDERED: DILTIAZEM 5 MG/ML, 5ML IV ONE (13:00)
[2017-12-08] MEDS ORDERED: ONDANSETRON 2MG/ML, 2ML IVPush ONE (13:00)
[2017-12-08] MEDS ORDERED: PLEASE ENTER HEIGHT AND WEIGHT MC SCH (13:00)
[2017-12-08] MEDS ORDERED: SODIUM CHLORIDE 0.9% 1,000ML IVBOLUS ONE (13:00)
[2017-12-08 13:09] LABS: BASOPHILS # (AUTO) 0.02 x10^3/uL (0-0.1); BASOPHILS % (AUTO) 0 % (0-1); EOSINOPHILS # (AUTO) 0.03 x10^3/uL (0-0.4); EOSINOPHILS % (AUTO) 1 % (1-7); LYMPHOCYTES % (AUTO) 43 % (22-44); MD NO; MEAN CORPUSCULAR HEMOGLOBIN 33.3 pg (27.5-34.5); MEAN CORPUSCULAR HGB CONC 33.8 g/dL (33.2-36.2); MEAN CORPUSCULAR VOLUME 98.7 fL (81-97); MEAN PLATELET VOLUME 8.1 fL (7.4-10.4); MONOCYTES % (AUTO) 9 % (2-9); NEUTROPHILS # (AUTO) 3.12 x10^3/uL (1.8-6.8); NEUTROPHILS % (AUTO) 47 % (42-75); PLATELET COUNT 159 x10^3/uL (130-400); RED BLOOD COUNT 4.42 x10^6/uL (4.38-5.82); RED CELL DISTRIBUTION WIDTH 15.9 % (9.4-14.8)
[2017-12-08 13:18] LABS: INTERNATIONAL NORMALIZED RATIO 0.94 (0.93-1.1); PROTHROMBIN TIME 9.8 Seconds (9.6-11.5)
[2017-12-08] MEDS ORDERED: ONDANSETRON 2MG/ML, 2ML ONE (13:27)
[2017-12-08 13:34] LABS: ALANINE AMINOTRANSFERASE 57 U/L (12-78); ALBUMIN 3.7 g/dL (3.4-5.0); ANION GAP 11 mmol/L (5-15); CALCIUM 8.3 mg/dL (8.5-10.1); CHLORIDE 110 mmol/L (98-107)
[2017-12-08 13:39] LABS: ALKALINE PHOSPHATASE 99 U/L (45-117); BILIRUBIN,TOTAL 0.4 mg/dL (0.2-1.0); TOTAL PROTEIN 7.1 g/dL (6.4-8.2); TROPONIN I < 0.015 ng/mL (0.000-0.045)
[2017-12-08] MEDS ORDERED: POTASSIUM CHLORIDE 20 MEQ TAB.ER.PRT PO ONE (14:00)
[2017-12-08] MEDS ORDERED: POTASSIUM CHLORIDE 20 MEQ TAB.ER.PRT ONE (14:28)
== END 2017-12-08 15:54 | disposition home or self-care (01) ==
LOC: ED 15:08
DX: F10.120 Alcohol abuse with intoxication, uncomplicated (principal); I10 Essential (primary) hypertension; J44.9 Chronic obstructive pulmonary disease, unspecified; I48.91 Unspecified atrial fibrillation; F41.1 Generalized anxiety disorder
CPT/HCPCS: 36415; 71045; 80053; 83880; 84484; 85025; 85610; 85730; 93005; 96365; 96366; 96375; 99285; J2405; J3411; J7030

== ENCOUNTER 2017-12-20 18:11 | Inpatient (IN) | payer MEDICAID ==
[~2017-12-20] VITALS: Ht 175.3 cm; Wt 76.2 kg
[~2017-12-20 18:11] MED LIST changes: -THIA100T6 PO; +THIA100T67 PO
[2017-12-20] MEDS ORDERED: SODIUM CHLORIDE 0.9% 1,000ML IVBOLUS ONE (18:30)
[2017-12-20] MEDS ORDERED: SODIUM CHLORIDE FLUSH 10ML SYR IVF ONE (18:30)
[2017-12-20] MEDS ORDERED: THIAMINE 100MG TABLET PO ONE (18:30)
[2017-12-20] MEDS ORDERED: LORazepam 2 MG/ML, 1ML ONE ×2 (18:48→20:16)
[2017-12-20] MEDS: LORazepam 2 MG/ML, 1ML IVPush PRN ×2 (18:51→20:20)
[2017-12-20 18:52] LABS: MEAN CORPUSCULAR HEMOGLOBIN 34.1 pg (27.5-34.5); MEAN CORPUSCULAR HGB CONC 34.3 g/dL (33.2-36.2); MEAN CORPUSCULAR VOLUME 99.4 fL (81-97); MEAN PLATELET VOLUME 8.4 fL (7.4-10.4); PLATELET COUNT 201 x10^3/uL (130-400); RED BLOOD COUNT 3.89 x10^6/uL (4.38-5.82); RED CELL DISTRIBUTION WIDTH 16.1 % (9.4-14.8)
[2017-12-20 19:02] LABS: ALBUMIN 3.6 g/dL (3.4-5.0); ANION GAP 10 mmol/L (5-15); CALCIUM 8.9 mg/dL (8.5-10.1); CHLORIDE 105 mmol/L (98-107); CREATININE 0.74 mg/dL (0.7-1.3)
[2017-12-20 19:06] LABS: TROPONIN I < 0.015 ng/mL (0.000-0.045)
[2017-12-20 19:21] LABS: MD YES
[2017-12-20 19:23] LABS: BASOS#(MANUAL) 0.13 x10^3/uL (0-0.1); BASOS% (MANUAL) 2 % (0-1); LYMPH#(MANUAL) 1.15 x10^3/uL (1-3.4); LYMPHS% (MANUAL) 18 % (22-44); MONOS#(MANUAL) 0.38 x10^3/uL (0.3-2.7); MONOS% (MANUAL) 6 % (2-9); SEG#(MANUAL) 4.74 x10^3/uL (1.8-6.8); SEGS% (MANUAL) 74 % (42-75)
[2017-12-20 19:24] LABS: <PLATELET ESTIMATE> ADEQUATE; <PLT MORPHOLOGY> NORMAL PLT MORPH; <RBC MORPHOLOGY> NORMAL
[2017-12-20] MEDS ORDERED: THIAMINE 100MG TABLET ONE (19:29)
[2017-12-20] MEDS ORDERED: POLYETHYLENE GLYCOL 17 GM PACKET PO PRN (20:30)
[2017-12-20] MEDS ORDERED: OXYcodone IR 5MG TABLET PO PRN (20:30)
[2017-12-20] MEDS ORDERED: ENALAPRILAT 1.25 MG/ML, 2ML IVPush PRN (20:30)
[2017-12-20] MEDS ORDERED: PROMETHAZINE 25 MG/ML, 1ML IM PRN (20:30)
[2017-12-20] MEDS ORDERED: LORazepam 2 MG/ML, 1ML IV PRN ×4 (20:30)
[2017-12-20] MEDS ORDERED: DOCUSATE 100 MG CAPSULE PO PRN (20:30)
[2017-12-20] MEDS ORDERED: LORazepam 0.5MG TABLET PO PRN (20:30)
[2017-12-20] MEDS ORDERED: ONDANSETRON 2MG/ML, 2ML IVPush PRN (20:30)
[2017-12-20] MEDS ORDERED: LORazepam 1MG TABLET PO PRN ×4 (20:30)
[2017-12-20] MEDS ORDERED: BISACODYL 10 MG SUPP PR PRN (20:30)
[2017-12-20] MEDS ORDERED: ONDANSETRON ODT 4 MG PO PRN (20:30)
[2017-12-20] MEDS ORDERED: LABETALOL 5MG/ML, 20ML IVPush PRN (20:30)
[2017-12-20 20:52] LABS: FREE T4 (FREE THYROXINE) 0.82 ng/dL (0.76-1.46); THYROID STIMULATING HORMONE 0.925 mIU/L (0.358-3.740)
[2017-12-20 20:55] VITALS: BP 143/86
[2017-12-20 21:06] LABS: HEMOGLOBIN A1C 5.1 % (4.2-6.3)
[2017-12-20] MEDS ORDERED: ASPI-650 PO (21:40)
[2017-12-20] MEDS ORDERED: THIA100T10 PO (21:40)
[2017-12-20] MEDS ORDERED: FOLI-17 PO (21:40)
[2017-12-20] MEDS ORDERED: NALT50TA PO (21:40)
[2017-12-20] MEDS ORDERED: TAMS-11 PO (21:40)
[2017-12-20] MEDS ORDERED: METO50TA6 PO (21:40)
[2017-12-20] MEDS ORDERED: PANT40GR PO (21:40)
[2017-12-20] MEDS: SODIUM CHLORIDE 0.9% 1,000 ML IV SCH (21:51)
[2017-12-20] MEDS: NICOTINE 14MG/24 HR PATCH.TD24 TD SCH (22:04)
[2017-12-20] MEDS: GABAPENTIN 300 MG CAPSULE PO SCH (22:05)
[2017-12-20] MEDS: CHLORDIAZEPOXIDE 25 MG CAPSULE PO SCH ×2 (22:05→22:24)
[2017-12-20] MEDS: HEPARIN 5,000 UNITS/ML, 1ML SQ SCH (22:05)
[2017-12-20] MEDS: POTASSIUM CHLORIDE 20 MEQ, MAGNESIUM SULFATE 2 GM, THIAMINE 100 MG, MVI ADULT 10 ML, FO... IV SCH (22:19)
[2017-12-20] MEDS ORDERED: ALBUTEROL SULFATE 2.5 MG/3 ML NPPB PRN (22:30)
[2017-12-21 01:33] VITALS: BP 127/80
[2017-12-21 01:57] LABS: TROPONIN I < 0.015 ng/mL (0.000-0.045)
[2017-12-21 02:05] LABS: MICROSCOPIC AUTO
[2017-12-21 02:08] LABS: CULTURE INDICATED? YES
[2017-12-21 02:08] LABS: ALANINE AMINOTRANSFERASE 63 U/L (12-78); ALBUMIN 3.1 g/dL (3.4-5.0); ANION GAP 10 mmol/L (5-15); BASOPHILS # (AUTO) 0.01 x10^3/uL (0-0.1); BASOPHILS % (AUTO) 0 % (0-1); CALCIUM 8.5 mg/dL (8.5-10.1); CHLORIDE 108 mmol/L (98-107); CHOLESTEROL, TOTAL 202 mg/dL (140-239); EOSINOPHILS # (AUTO) 0.09 x10^3/uL (0-0.4); EOSINOPHILS % (AUTO) 2 % (1-7); LYMPHOCYTES # (AUTO) 1.64 x10^3/uL (1-3.4); LYMPHOCYTES % (AUTO) 31 % (22-44); MD NO; MEAN CORPUSCULAR HEMOGLOBIN 33.9 pg (27.5-34.5); MEAN CORPUSCULAR HGB CONC 33.9 g/dL (33.2-36.2); MEAN CORPUSCULAR VOLUME 99.9 fL (81-97); MEAN PLATELET VOLUME 8.8 fL (7.4-10.4); MONOCYTES # (AUTO) 0.57 x10^3/uL (0.2-0.8); MONOCYTES % (AUTO) 11 % (2-9); NEUTROPHILS # (AUTO) 3.01 x10^3/uL (1.8-6.8); NEUTROPHILS % (AUTO) 57 % (42-75); PLATELET COUNT 161 x10^3/uL (130-400); RED BLOOD COUNT 3.83 x10^6/uL (4.38-5.82); RED CELL DISTRIBUTION WIDTH 16.4 % (9.4-14.8); TRIGLYCERIDES 88 mg/dL (50-200); VLDL CHOLESTEROL 18 mg/dL (0-25)
[2017-12-21 02:11] LABS: ALKALINE PHOSPHATASE 105 U/L (45-117); BILIRUBIN,TOTAL 0.7 mg/dL (0.2-1.0); CREATININE 0.69 mg/dL (0.7-1.3); HDL CHOL % 51 % (26-37); HDL CHOLESTEROL (DIRECT) 103 mg/dL (40-60); LDL CHOLESTEROL,CALCULATED 81 mg/dL (54-169); LDL/HDL RATIO 0.8 (0.5-3.0); TOTAL PROTEIN 6.1 g/dL (6.4-8.2)
[2017-12-21] MEDS: HEPARIN 5,000 UNITS/ML, 1ML SQ SCH ×3 (06:07→21:02)
[2017-12-21] MEDS: CHLORDIAZEPOXIDE 25 MG CAPSULE PO SCH ×4 (06:07→21:01)
[2017-12-21 06:42] VITALS: BP 136/91
[2017-12-21 07:10] LABS: TROPONIN I < 0.015 ng/mL (0.000-0.045)
[2017-12-21] MEDS ORDERED: AMIODARONE 200 MG TABLET PO SCH (08:00)
[2017-12-21] MEDS ORDERED: ASPIRIN 81 MG TABLET EC PO SCH (09:00)
[2017-12-21] MEDS: TAMSULOSIN 0.4 MG CAP.ER.24H PO SCH (09:09)
[2017-12-21] MEDS: LORazepam 2 MG/ML, 1ML IV PRN ×4 (09:09→22:26)
[2017-12-21] MEDS: PANTOPROZOLE 40MG TABLET PO SCH ×2 (09:10→21:01)
[2017-12-21] MEDS: ASPIRIN 325 MG TABLET PO SCH (09:10)
[2017-12-21] MEDS: AMIODARONE 200 MG TABLET PO SCH ×3 (09:11→21:02)
[2017-12-21] MEDS: METOPROLOL TARTRATE 50 MG TABLET PO SCH ×2 (09:13→21:01)
[2017-12-21] MEDS ORDERED: ALUMINUM/MAG/SIMETHICONE 30 ML UDC PO ONE (10:00)
[2017-12-21] MEDS: SODIUM CHLORIDE 0.9% 1,000 ML IV SCH (11:02)
[2017-12-21 12:30] VITALS: BP 113/76
[2017-12-21 20:16] VITALS: BP 136/88
[2017-12-21] MEDS: GABAPENTIN 300 MG CAPSULE PO SCH (21:01)
[2017-12-21] MEDS: NICOTINE 14MG/24 HR PATCH.TD24 TD SCH (21:02)
[2017-12-21] MEDS: POTASSIUM CHLORIDE 20 MEQ, MAGNESIUM SULFATE 2 GM, THIAMINE 100 MG, MVI ADULT 10 ML, FO... IV SCH (22:26)
[2017-12-22 01:16] VITALS: BP 144/96
[2017-12-22 04:54] LABS: ALANINE AMINOTRANSFERASE 50 U/L (12-78); ANION GAP 6 mmol/L (5-15); CALCIUM 8.5 mg/dL (8.5-10.1); CHLORIDE 112 mmol/L (98-107); CREATININE 0.79 mg/dL (0.7-1.3)
[2017-12-22 04:57] LABS: ALKALINE PHOSPHATASE 98 U/L (45-117); BILIRUBIN,TOTAL 0.5 mg/dL (0.2-1.0); MD SCAN; MEAN CORPUSCULAR HEMOGLOBIN 34.3 pg (27.5-34.5); MEAN CORPUSCULAR HGB CONC 34.1 g/dL (33.2-36.2); MEAN CORPUSCULAR VOLUME 100.5 fL (81-97); MEAN PLATELET VOLUME 9.3 fL (7.4-10.4); PLATELET COUNT 143 x10^3/uL (130-400); RED BLOOD COUNT 3.87 x10^6/uL (4.38-5.82); RED CELL DISTRIBUTION WIDTH 16.6 % (9.4-14.8); TOTAL PROTEIN 6.2 g/dL (6.4-8.2)
[2017-12-22 04:59] LABS: BASOPHILS # (AUTO) 0.01 x10^3/uL (0-0.1); BASOPHILS % (AUTO) 0 % (0-1); EOSINOPHILS # (AUTO) 0.08 x10^3/uL (0-0.4); EOSINOPHILS % (AUTO) 1 % (1-7); LYMPHOCYTES # (AUTO) 1.88 x10^3/uL (1-3.4); LYMPHOCYTES % (AUTO) 34 % (22-44); MONOCYTES % (AUTO) 7 % (2-9); NEUTROPHILS # (AUTO) 3.21 x10^3/uL (1.8-6.8); NEUTROPHILS % (AUTO) 58 % (42-75)
[2017-12-22] MEDS: CHLORDIAZEPOXIDE 25 MG CAPSULE PO SCH (05:52)
[2017-12-22] MEDS: HEPARIN 5,000 UNITS/ML, 1ML SQ SCH (05:52)
[2017-12-22 07:05] VITALS: BP 108/74
[2017-12-22] MEDS ORDERED: METH750T87 PO (07:38)
[2017-12-22] MEDS: AMIODARONE 200 MG TABLET PO SCH (08:00)
[2017-12-22] MEDS: TAMSULOSIN 0.4 MG CAP.ER.24H PO SCH (08:34)
[2017-12-22] MEDS: PANTOPROZOLE 40MG TABLET PO SCH (08:34)
[2017-12-22] MEDS: ASPIRIN 325 MG TABLET PO SCH (08:35)
[2017-12-22] MEDS: METOPROLOL TARTRATE 50 MG TABLET PO SCH (08:35)
[2017-12-22] MEDS ORDERED: CHOLECALCIFEROL 1,000 UNIT TABLET PO SCH (09:00)
== END 2017-12-22 10:52 | disposition home or self-care (01) | DRG 101 ==
LOC: ED 19:59 → EDIP 20:00 → 5SO 20:58 → DCLOUNGE 12-22 10:40
PROVIDERS: ADMIT Internal Medicine; ATTEND Internal Medicine
DX: R56.9 Unspecified convulsions (principal); F10.239 Alcohol dependence with withdrawal, unspecified; D68.69 Other thrombophilia; R07.9 Chest pain, unspecified; J44.9 Chronic obstructive pulmonary disease, unspecified; K21.9 Gastro-esophageal reflux disease without esophagitis; F41.9 Anxiety disorder, unspecified; F17.210 Nicotine dependence, cigarettes, uncomplicated; I10 Essential (primary) hypertension; I48.2 Chronic atrial fibrillation; S16.1XXA Strain of muscle, fascia and tendon at neck level, initial encounter; S60.222A Contusion of left hand, initial encounter; Z80.3 Family history of malignant neoplasm of breast; Z88.5 Allergy status to narcotic agent; Z88.8 Allergy status to other drugs, medicaments and biological substances; Z79.899 Other long term (current) drug therapy; Y92.89 Other specified places as the place of occurrence of the external cause
CPT/HCPCS: 36415; 73130; 99285; J7042; 71045; 72125; 80048; 80053; 80061; 81001; 82040; 82306; 82607; 83036; 83735; 84439; 84443; 84484; 85025; 87086; 93005; 93306; 96361; 96374; 96376; J1644; J3411; J3475; J3480; J2060; J7030

== ENCOUNTER 2018-01-02 15:42 | Emergency (ER) | payer MEDICAID ==
[~2018-01-02] VITALS: Ht 180.3 cm; Wt 71.3 kg
[~2018-01-02 15:42] MED LIST changes: +ASPI-650 PO; +METH750T87 PO; +METO50TA6 PO; +PANT40GR PO; +THIA100T10 PO
[2018-01-02 15:45] VITALS: BP 114/79
== END 2018-01-02 17:05 | disposition home or self-care (01) ==
LOC: ED 16:35
DX: F10.231 Alcohol dependence with withdrawal delirium (principal); Z76.0 Encounter for issue of repeat prescription; I48.91 Unspecified atrial fibrillation; Y90.9 Presence of alcohol in blood, level not specified
CPT/HCPCS: 99283

== ENCOUNTER 2019-09-13 22:55 | Emergency (ER) | payer MEDICAID ==
[~2019-09-13] VITALS: Ht 175.3 cm; Wt 77.2 kg
[~2019-09-13 22:55] MED LIST changes: +DILT120C48 PO; -DILT120C9 PO
[2019-09-13] MEDS ORDERED: SODIUM CHLORIDE 0.9% 1,000ML IVBOLUS ONE (23:30)
[2019-09-13] MEDS ORDERED: LORazepam 2 MG/ML, 1ML IVPush ONE (23:30)
--- NOTE | 2019-09-13 23:37 | NUR ---
Pt presents to room stating he has relapsed on ETOH for the past 9 days. Pt states he missed his morning dose of Metoprolol today and developed palpitations at around 2200 tonight. Pt states he felt shaky at home but that has improved now. Pt has a minor tremor with lifting his arms in the room. Pt reports some pain in his chest only with deep breathing.
[2019-09-13] MEDS ORDERED: LORazepam 2 MG/ML, 1ML ONE (23:41)
[2019-09-13 23:42] LABS: BASOPHILS # (AUTO) 0.04 x10^3/uL (0-0.1); BASOPHILS % (AUTO) 1 % (0-1); EOSINOPHILS # (AUTO) 0.07 x10^3/uL (0-0.4); EOSINOPHILS % (AUTO) 1 % (1-7); LYMPHOCYTES # (AUTO) 2.73 x10^3/uL (1-3.4); LYMPHOCYTES % (AUTO) 35 % (22-44); MD NO; MEAN CORPUSCULAR HEMOGLOBIN 31.1 pg (27.5-34.5); MEAN CORPUSCULAR HGB CONC 34.5 g/dL (33.2-36.2); MEAN CORPUSCULAR VOLUME 90.2 fL (81-97); MEAN PLATELET VOLUME 8.4 fL (7.4-10.4); MONOCYTES # (AUTO) 0.76 x10^3/uL (0.2-0.8); MONOCYTES % (AUTO) 10 % (2-9); NEUTROPHILS # (AUTO) 4.14 x10^3/uL (1.8-6.8); NEUTROPHILS % (AUTO) 54 % (42-75); PLATELET COUNT 112 x10^3/uL (130-400); RED BLOOD COUNT 4.65 x10^6/uL (4.38-5.82); RED CELL DISTRIBUTION WIDTH 15.8 % (9.4-14.8)
[2019-09-13 23:55] LABS: ALANINE AMINOTRANSFERASE 46 U/L (12-78); ALBUMIN 3.5 g/dL (3.4-5.0); ANION GAP 11 mmol/L (5-15); CALCIUM 9.1 mg/dL (8.5-10.1); CHLORIDE 106 mmol/L (98-107)
--- NOTE | 2019-09-13 23:57 | NUR ---
[facility] rubio. Pt will be transferred back to [facility].
[2019-09-13 23:59] LABS: ALKALINE PHOSPHATASE 81 U/L (45-117); BILIRUBIN,TOTAL 0.5 mg/dL (0.2-1.0); TOTAL PROTEIN 7.2 g/dL (6.4-8.2); TROPONIN I < 0.015 ng/mL (0.000-0.045)
[2019-09-14 00:21] VITALS: BP 114/80
== END 2019-09-14 01:09 | disposition home or self-care (01) ==
LOC: ED 09-14 00:02
DX: R07.89 Other chest pain (principal); F41.1 Generalized anxiety disorder; F10.239 Alcohol dependence with withdrawal, unspecified; I10 Essential (primary) hypertension; J44.9 Chronic obstructive pulmonary disease, unspecified; I48.91 Unspecified atrial fibrillation; R94.31 Abnormal electrocardiogram [ECG] [EKG]; Y90.0 Blood alcohol level of less than 20 mg/100 ml
CPT/HCPCS: 36415; 71045; 80053; 80307; 83690; 83735; 84484; 85025; 93005; 96374; 99285; J2060; J7030

== ENCOUNTER 2019-10-01 01:13 | Inpatient (IN) | payer MEDICAID ==
[~2019-10-01] VITALS: Ht 175.3 cm; Wt 76.3 kg
--- NOTE | 2019-10-01 01:17 | NUR ---
Patient presents to ER c/o unspecified abd pain and bright red blood in stool. Patient has a hx of pancreatitis. Patient states he had approx 1/2 pint alcohol tonight; usually he has 3/4 pint. Patient is feeling unsteady on his feet which he states he does not think is from the alcohol since he didn't drink as much as usual. Patient also c/o N/V. Patient is in NAD. Respirations even and unlabored.
[2019-10-01] MEDS ORDERED: FAMOTIDINE 20 MG/2 ML ONE (01:27)
[2019-10-01] MEDS ORDERED: ONDANSETRON 2MG/ML, 2ML ONE (01:27)
[2019-10-01] MEDS ORDERED: FAMOTIDINE 20 MG/2 ML IV ONE (01:30)
[2019-10-01] MEDS ORDERED: SODIUM CHLORIDE 0.9% 1,000ML IVBOLUS ONE (01:30)
[2019-10-01] MEDS ORDERED: ONDANSETRON 2MG/ML, 2ML IVPush ONE (01:30)
[2019-10-01] MEDS ORDERED: SODIUM CHLORIDE FLUSH 10ML SYR IVF ONE (01:30)
[2019-10-01] MEDS ORDERED: HYDR50TA99 PO (01:38)
[2019-10-01] MEDS ORDERED: THIAMINE 100 MG/ML, 2ML ONE (01:43)
[2019-10-01 01:44] LABS: BASOPHILS # (AUTO) 0.03 x10^3/uL (0-0.1); BASOPHILS % (AUTO) 0 % (0-1); EOSINOPHILS # (AUTO) 0.03 x10^3/uL (0-0.4); EOSINOPHILS % (AUTO) 0 % (1-7); LYMPHOCYTES # (AUTO) 2.15 x10^3/uL (1-3.4); LYMPHOCYTES % (AUTO) 30 % (22-44); MD NO; MEAN CORPUSCULAR HEMOGLOBIN 30.9 pg (27.5-34.5); MEAN CORPUSCULAR HGB CONC 34.2 g/dL (33.2-36.2); MEAN CORPUSCULAR VOLUME 90.3 fL (81-97); MEAN PLATELET VOLUME 7.8 fL (7.4-10.4); MONOCYTES # (AUTO) 0.42 x10^3/uL (0.2-0.8); MONOCYTES % (AUTO) 6 % (2-9); NEUTROPHILS # (AUTO) 4.61 x10^3/uL (1.8-6.8); NEUTROPHILS % (AUTO) 64 % (42-75); PLATELET COUNT 147 x10^3/uL (130-400); RED BLOOD COUNT 5.24 x10^6/uL (4.38-5.82); RED CELL DISTRIBUTION WIDTH 16.2 % (9.4-14.8)
[2019-10-01 01:55] LABS: ALANINE AMINOTRANSFERASE 128 U/L (12-78); ALBUMIN 3.2 g/dL (3.4-5.0); ANION GAP 12 mmol/L (5-15); CALCIUM 7.2 mg/dL (8.5-10.1); CHLORIDE 104 mmol/L (98-107)
[2019-10-01 02:00] LABS: ALKALINE PHOSPHATASE 93 U/L (45-117); BILIRUBIN,TOTAL 0.5 mg/dL (0.2-1.0); TROPONIN I < 0.015 ng/mL (0.000-0.045)
[2019-10-01] MEDS ORDERED: THIAMINE 100 MG/ML, 2ML IM ONE (02:00)
[2019-10-01] MEDS ORDERED: THIAMINE 200 MG in SODIUM CHLORIDE 0.9% 50 ML IV ONE (02:00)
[2019-10-01 02:24] LABS: MICROSCOPIC AUTO
[2019-10-01 02:33] LABS: CULTURE INDICATED? NO
[2019-10-01] MEDS ORDERED: OMNIPAQUE 350 MG/ML, 100ML BOTTLE ONE (02:41)
--- NOTE | 2019-10-01 03:23 | NUR ---
TP: SPOKE WITH JERAD AT [facility]. [facility] NOT ACCEPTING PT AT THIS TIME.
[2019-10-01] MEDS ORDERED: ONDANSETRON 2MG/ML, 2ML IVPush PRN (03:30)
[2019-10-01] MEDS ORDERED: HYDROmorphone 2 MG/ML, 1ML IVPush PRN (03:30)
--- NOTE | 2019-10-01 03:58 | NUR ---
Report given to CARLOS A Villareal. Patient to be transferred to room 344.
[2019-10-01] MEDS ORDERED: LORazepam 1MG TABLET PO PRN (04:00)
[2019-10-01] MEDS ORDERED: LORazepam 2 MG/ML, 1ML IV PRN ×2 (04:00)
[2019-10-01 04:14] VITALS: BP 131/91
[2019-10-01] MEDS: LORazepam 2 MG/ML, 1ML IV PRN ×4 (04:49→20:34)
[2019-10-01] MEDS ORDERED: POTASSIUM CHLORIDE 20 MEQ, MAGNESIUM SULFATE 1 GM, THIAMINE 200 MG, FOLIC ACID 1 MG, MV... IV SCH (07:00)
[2019-10-01 07:33] VITALS: BP 154/103
[2019-10-01] MEDS: PANTOPRAZOLE GRAN. PKT 40 MG PO SCH ×2 (08:08→21:40)
[2019-10-01] MEDS: METOPROLOL TARTRATE 50 MG TAB PO SCH ×2 (08:09→21:40)
[2019-10-01 08:57] VITALS: BP 132/90
[2019-10-01 13:27] VITALS: BP 138/85
[2019-10-01 19:15] VITALS: BP 131/81
[2019-10-02 00:45] VITALS: BP 117/71
[2019-10-02] MEDS: LORazepam 2 MG/ML, 1ML IV PRN ×2 (01:06→03:02)
[2019-10-02 05:36] LABS: BASOPHILS # (AUTO) 0.03 x10^3/uL (0-0.1); BASOPHILS % (AUTO) 0 % (0-1); EOSINOPHILS # (AUTO) 0.09 x10^3/uL (0-0.4); EOSINOPHILS % (AUTO) 1 % (1-7); LYMPHOCYTES # (AUTO) 2.58 x10^3/uL (1-3.4); LYMPHOCYTES % (AUTO) 31 % (22-44); MD NO; MEAN CORPUSCULAR HEMOGLOBIN 30.7 pg (27.5-34.5); MEAN CORPUSCULAR HGB CONC 34.2 g/dL (33.2-36.2); MEAN PLATELET VOLUME 8.5 fL (7.4-10.4); MONOCYTES # (AUTO) 0.49 x10^3/uL (0.2-0.8); MONOCYTES % (AUTO) 6 % (2-9); NEUTROPHILS % (AUTO) 62 % (42-75); PLATELET COUNT 110 x10^3/uL (130-400); RED BLOOD COUNT 4.52 x10^6/uL (4.38-5.82)
[2019-10-02 05:43] LABS: ANION GAP 9 mmol/L (5-15); CALCIUM 7.7 mg/dL (8.5-10.1); CHLORIDE 104 mmol/L (98-107); CREATININE 0.93 mg/dL (0.7-1.3)
== END 2019-10-02 05:40 | disposition left against medical advice (07) | DRG 432 ==
LOC: ED 01:42 → EDIP 03:20 → 3N 04:11
PROVIDERS: ATTEND Hospitalist
DX: K70.10 Alcoholic hepatitis without ascites (principal); K85.20 Alcohol induced acute pancreatitis without necrosis or infection; F41.1 Generalized anxiety disorder; I10 Essential (primary) hypertension; I48.91 Unspecified atrial fibrillation; J44.9 Chronic obstructive pulmonary disease, unspecified; F17.200 Nicotine dependence, unspecified, uncomplicated; F10.229 Alcohol dependence with intoxication, unspecified; Z53.29 Procedure and treatment not carried out because of patient's decision for other reasons
CPT/HCPCS: 36415; J3490; 74177; 80048; 80053; 81001; 83690; 84484; 85014; 85018; 85025; 93005; 96374; 96375; G0378; J2405; J3411; J3475; J3480; Q9967; J2060; J7030

== ENCOUNTER 2019-11-08 22:14 | Emergency (ER) | payer MEDICAID ==
[~2019-11-08] VITALS: Ht 175.3 cm; Wt 80.0 kg
[~2019-11-08 22:14] MED LIST changes: +HYDR50TA99 PO
--- NOTE | 2019-11-08 22:20 | NUR ---
ERP TO BEDSIDE.
--- NOTE | 2019-11-08 22:25 | NUR ---
THIS PT WAS BIB [facility], COMING FROM HOME WHERE HE DRANK AND TOOK 1 SUBOXONE. PRIOR TO EMS ARRIVAL PT HAS AN EPISODE OF NAUSEA, NO VOMITTING. EMS WITNESSED UNSTEADY GAIT, NO FALL. PT DOES NOT TAKE BLOOD THINNERS. CURRENTLY PT IS A&OX3.
--- NOTE | 2019-11-08 22:30 | NUR ---
PER PT COULDN'T WALK, AND HAD A FALL PRIOR TO EMS ARRIVAL. AT BEDSIDE.
--- NOTE | 2019-11-08 22:43 | NUR ---
ASSIST RN: WATER PROVIDED TO PT PER ERP. RV'WD POC WITH PT AND .
--- NOTE | 2019-11-08 23:13 | NUR ---
PT LAYING IN BED, EDUCATED TO USE CALL LIGHT, NOT YELL OUT FOR RN. CALL LIGHT REMAINS IN REACH. AT BEDSIDE.
--- NOTE | 2019-11-09 | NUR ---
PT LAYING IN BED, RESPIRATIONS EVEN AND UNLABORED, NO SIGNS OF DISTRESS. AT BEDSIDE.
[2019-11-09 01:22] VITALS: BP 118/82
== END 2019-11-09 01:25 | disposition home or self-care (01) ==
LOC: ED 11-09 01:00
DX: F10.129 Alcohol abuse with intoxication, unspecified (principal); I10 Essential (primary) hypertension; J44.9 Chronic obstructive pulmonary disease, unspecified; I48.91 Unspecified atrial fibrillation; Y90.9 Presence of alcohol in blood, level not specified
CPT/HCPCS: 99283

== ENCOUNTER 2019-11-20 16:48 | Inpatient (IN) | payer MEDICAID ==
[~2019-11-20] VITALS: Ht 175.3 cm; Wt 77.1 kg
--- NOTE | 2019-11-20 16:58 | NUR ---
PT AMBULATES TO ROOM FROM TRIAGE.
[2019-11-20] MEDS ORDERED: HYDROmorphone 2 MG/ML, 1ML IVPush ONE (17:30)
[2019-11-20] MEDS ORDERED: ONDANSETRON 2MG/ML, 2ML IVPush ONE (17:30)
[2019-11-20] MEDS ORDERED: SODIUM CHLORIDE FLUSH 10ML SYR IVF ONE (17:30)
[2019-11-20] MEDS ORDERED: HYDROmorphone 1 MG/ML, 1ML INJ ONE (17:37)
[2019-11-20] MEDS ORDERED: ONDANSETRON 2MG/ML, 2ML ONE (17:37)
[2019-11-20] MEDS ORDERED: SUCR1TAB33 PO (17:44)
[2019-11-20] MEDS ORDERED: OMEP-110 PO (17:45)
--- NOTE | 2019-11-20 17:52 | NUR ---
PIV STARTED AND PATIENT MEDICATED PER JUL. AT BEDSIDE. PT ON CONTINUOUS PULSE OX.
[2019-11-20 17:55] LABS: ALANINE AMINOTRANSFERASE 101 U/L (12-78); ALBUMIN 3.8 g/dL (3.4-5.0); ANION GAP 11 mmol/L (5-15); CALCIUM 8.1 mg/dL (8.5-10.1); CHLORIDE 102 mmol/L (98-107); CREATININE 0.73 mg/dL (0.7-1.3)
[2019-11-20 17:57] LABS: ALKALINE PHOSPHATASE 127 U/L (45-117); BILIRUBIN,TOTAL 0.5 mg/dL (0.2-1.0); TOTAL PROTEIN 7.6 g/dL (6.4-8.2)
--- NOTE | 2019-11-20 18:00 | NUR ---
PER HERMELINDO, RN, PT PULLED IV OUT AND ERP WILL BE NOTIFIED.
[2019-11-20 18:11] LABS: MD YES; MEAN CORPUSCULAR HEMOGLOBIN 31.6 pg (27.5-34.5); MEAN CORPUSCULAR HGB CONC 34.1 g/dL (33.2-36.2); MEAN CORPUSCULAR VOLUME 92.7 fL (81-97); MEAN PLATELET VOLUME 8.6 fL (7.4-10.4); PLATELET COUNT 77 x10^3/uL (130-400); RED BLOOD COUNT 4.98 x10^6/uL (4.38-5.82); RED CELL DISTRIBUTION WIDTH 16.6 % (9.4-14.8)
[2019-11-20 18:19] LABS: LYMPH#(MANUAL) 2.44 x10^3/uL (1-3.4); LYMPHS% (MANUAL) 40 % (22-44); MONOS#(MANUAL) 0.12 x10^3/uL (0.3-2.7); MONOS% (MANUAL) 2 % (2-9); SEG#(MANUAL) 3.54 x10^3/uL (1.8-6.8); SEGS% (MANUAL) 58 % (42-75)
[2019-11-20 18:20] LABS: <PLATELET ESTIMATE> DECREASED; <RBC MORPHOLOGY> NORMAL
[2019-11-20 18:21] LABS: <PLT MORPHOLOGY> NORMAL PLT MORPH
--- NOTE | 2019-11-20 19:25 | NUR ---
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 PT ORIENTED X 4, BUT UNABLE TO RECALL AMOUNT OF ETOH INTAKE. C/O ABD PAIN. BRUISE NOTED TO LT SCAPULA, LT LATERAL LOWER RIB. SIG OTHER STATES PT HAS FALLEN MULTIPLE TIMES.
[2019-11-20] MEDS ORDERED: SODIUM CHLORIDE 0.9% 1,000ML IVBOLUS ONE (20:00)
[2019-11-20] MEDS ORDERED: POTASSIUM CHLORIDE 20 MEQ TAB.ER.PRT ONE (20:05)
[2019-11-20] MEDS ORDERED: SODIUM CHLORIDE 0.9% 1,000 ML IV SCH (20:06)
[2019-11-20] MEDS ORDERED: MAALOX/HYOSCYAMINE/LIDOCAINE 45 ML BTL ONE (20:13)
--- NOTE | 2019-11-20 20:15 | NUR ---
DR PEREIRA BS TO DISCUSS POC
--- NOTE | 2019-11-20 20:26 | NUR ---
mathew rn: pt has [employer]. form faxed to [employer] at to inform of need for post stabilization care at [facility].
[2019-11-20] MEDS ORDERED: MAALOX/HYOSCYAMINE/LIDOCAINE 45 ML BTL PO ONE (20:30)
[2019-11-20] MEDS ORDERED: POTASSIUM CHLORIDE 20 MEQ TAB.ER.PRT PO ONE (20:30)
[2019-11-20] MEDS ORDERED: LORazepam 2 MG/ML, 1ML IV PRN ×3 (20:30)
[2019-11-20] MEDS ORDERED: hydrALAzine 20 MG/ML, 1ML IVPush PRN (20:30)
[2019-11-20 21:00] LABS: INTERNATIONAL NORMALIZED RATIO 0.93 (0.93-1.1); PROTHROMBIN TIME 9.8 Seconds (9.6-11.5)
--- NOTE | 2019-11-20 21:04 | NUR ---
CALLED FLOOR; RECEIVING RN NOT CURRENTLY AVAILABLE; SHE WILL CALL BACK.
--- NOTE | 2019-11-20 21:09 | NUR ---
PT REPORT TO CARLOS A FOREMAN FOR ROOM 419
[2019-11-20 21:22] VITALS: BP 123/79
[2019-11-20] MEDS ORDERED: FOLIC ACID 5 MG/ML IM ONE (21:30)
[2019-11-20] MEDS: PANTOPRAZOLE 40 MG IV IVPush SCH (22:09)
[2019-11-20] MEDS: HYDROmorphone 1 MG/ML, 1ML INJ IVPush PRN (22:10)
[2019-11-20] MEDS: ONDANSETRON 2MG/ML, 2ML IVPush PRN (22:10)
[2019-11-20] MEDS: D5%-0.9% NACL 1,000 ML IV SCH (22:29)
[2019-11-21 03:10] VITALS: BP 138/72
[2019-11-21 05:04] LABS: MEAN CORPUSCULAR HEMOGLOBIN 31.6 pg (27.5-34.5); MEAN CORPUSCULAR HGB CONC 33.2 g/dL (33.2-36.2); MEAN CORPUSCULAR VOLUME 95.2 fL (81-97); MEAN PLATELET VOLUME 8.4 fL (7.4-10.4); PLATELET COUNT 56 x10^3/uL (130-400); RED BLOOD COUNT 4.11 x10^6/uL (4.38-5.82); RED CELL DISTRIBUTION WIDTH 16.9 % (9.4-14.8)
[2019-11-21] MEDS: HYDROmorphone 1 MG/ML, 1ML INJ IVPush PRN ×4 (05:08→22:53)
[2019-11-21 05:09] LABS: ALBUMIN 2.9 g/dL (3.4-5.0); ANION GAP 11 mmol/L (5-15); BILIRUBIN, DIRECT 0.2 mg/dL (0.1-0.2); CALCIUM 7.1 mg/dL (8.5-10.1); CHLORIDE 106 mmol/L (98-107)
[2019-11-21 05:12] LABS: ALANINE AMINOTRANSFERASE 74 U/L (12-78); ALKALINE PHOSPHATASE 94 U/L (45-117); BILIRUBIN,INDIRECT 0.3 mg/dL (0.0-2.0); BILIRUBIN,TOTAL 0.5 mg/dL (0.2-1.0); TOTAL PROTEIN 5.8 g/dL (6.4-8.2)
[2019-11-21 06:04] LABS: BASOPHILS % (AUTO) 0 % (0-1); EOSINOPHILS # (AUTO) 0.03 x10^3/uL (0-0.4); EOSINOPHILS % (AUTO) 1 % (1-7); LYMPHOCYTES # (AUTO) 1.06 x10^3/uL (1-3.4); LYMPHOCYTES % (AUTO) 21 % (22-44); MD SCAN; MONOCYTES % (AUTO) 8 % (2-9); NEUTROPHILS # (AUTO) 3.65 x10^3/uL (1.8-6.8); NEUTROPHILS % (AUTO) 71 % (42-75)
[2019-11-21] MEDS: D5%-0.9% NACL 1,000 ML IV SCH ×2 (06:21→21:45)
[2019-11-21 07:39] VITALS: BP 135/86
[2019-11-21] MEDS: LORazepam 2 MG/ML, 1ML IV PRN ×8 (07:47→23:41)
[2019-11-21] MEDS: MULTIVITAMINS/MINERALS TABLET PO SCH (07:52)
[2019-11-21] MEDS ORDERED: PANTOPRAZOLE 40 MG IV IVPush SCH (09:00)
[2019-11-21] MEDS: PANTOPRAZOLE 40 MG IV IVPush SCH ×2 (10:33→21:50)
[2019-11-21 13:15] VITALS: BP 115/70
[2019-11-21] MEDS: POTASSIUM CHLORIDE 20 MEQ, MAGNESIUM SULFATE 1 GM, THIAMINE 200 MG, FOLIC ACID 1 MG, MV... IV SCH (13:56)
[2019-11-21] MEDS: ONDANSETRON 2MG/ML, 2ML IVPush PRN ×2 (15:05→22:53)
[2019-11-21 20:25] VITALS: BP 131/78
[2019-11-22] MEDS ORDERED: CHLORDIAZEPOXIDE 25 MG CAPSULE PO ONE (00:30)
[2019-11-22] MEDS ORDERED: ZIPRASIDONE 20 MG INJ IM ONE (01:00)
[2019-11-22 01:19] VITALS: BP 147/87
[2019-11-22] MEDS: D5%-0.9% NACL 1,000 ML IV SCH (05:47)
[2019-11-22] MEDS: MULTIVITAMINS/MINERALS TABLET PO SCH (07:44)
[2019-11-22] MEDS: LORazepam 2 MG/ML, 1ML IV PRN ×6 (07:44→23:22)
[2019-11-22 07:46] VITALS: BP 134/94
[2019-11-22 09:06] LABS: ALANINE AMINOTRANSFERASE 73 U/L (12-78); ALBUMIN 3.3 g/dL (3.4-5.0); ANION GAP 7 mmol/L (5-15); CALCIUM 7.7 mg/dL (8.5-10.1); CHLORIDE 100 mmol/L (98-107); CREATININE 0.63 mg/dL (0.7-1.3)
[2019-11-22 09:08] LABS: ALKALINE PHOSPHATASE 128 U/L (45-117); BILIRUBIN,TOTAL 0.9 mg/dL (0.2-1.0); TOTAL PROTEIN 6.9 g/dL (6.4-8.2)
[2019-11-22 09:58] LABS: BASOPHILS % (AUTO) 0 % (0-1); EOSINOPHILS # (AUTO) 0.06 x10^3/uL (0-0.4); EOSINOPHILS % (AUTO) 1 % (1-7); LYMPHOCYTES # (AUTO) 1.15 x10^3/uL (1-3.4); LYMPHOCYTES % (AUTO) 19 % (22-44); MD SCAN; MEAN CORPUSCULAR HEMOGLOBIN 31.9 pg (27.5-34.5); MEAN CORPUSCULAR HGB CONC 33.6 g/dL (33.2-36.2); MEAN CORPUSCULAR VOLUME 95.1 fL (81-97); MEAN PLATELET VOLUME 8.7 fL (7.4-10.4); MONOCYTES # (AUTO) 0.44 x10^3/uL (0.2-0.8); MONOCYTES % (AUTO) 7 % (2-9); NEUTROPHILS # (AUTO) 4.41 x10^3/uL (1.8-6.8); NEUTROPHILS % (AUTO) 73 % (42-75); PLATELET COUNT 58 x10^3/uL (130-400); RED BLOOD COUNT 4.79 x10^6/uL (4.38-5.82); RED CELL DISTRIBUTION WIDTH 16.7 % (9.4-14.8)
[2019-11-22] MEDS: CHLORDIAZEPOXIDE 25 MG CAPSULE PO SCH ×3 (11:14→21:35)
[2019-11-22] MEDS: PANTOPRAZOLE 40 MG IV IVPush SCH (11:14)
[2019-11-22] MEDS: POTASSIUM CHLORIDE 20 MEQ, MAGNESIUM SULFATE 1 GM, THIAMINE 200 MG, FOLIC ACID 1 MG, MV... IV SCH (14:37)
[2019-11-22 14:48] VITALS: BP 115/74
[2019-11-22] MEDS: PANTOPRAZOLE 40MG TABLET PO SCH (16:03)
[2019-11-22 19:34] VITALS: BP 137/93
[2019-11-22] MEDS: HYDROmorphone 1 MG/ML, 1ML INJ IVPush PRN (20:00)
[2019-11-22 21:49] VITALS: BP 129/85
[2019-11-22 22:45] VITALS: BP 148/92
[2019-11-22] MEDS: ONDANSETRON 2MG/ML, 2ML IVPush PRN (23:22)
[2019-11-23] MEDS: HYDROmorphone 1 MG/ML, 1ML INJ IVPush PRN ×2 (00:18→23:40)
[2019-11-23] MEDS: LORazepam 2 MG/ML, 1ML IV PRN ×7 (00:18→21:12)
[2019-11-23] MEDS: D5%-0.9% NACL 1,000 ML IV SCH ×2 (01:18→11:06)
[2019-11-23 01:40] VITALS: BP 120/78
[2019-11-23] MEDS: PANTOPRAZOLE 40MG TABLET PO SCH ×2 (05:43→16:04)
[2019-11-23 06:25] VITALS: BP 118/84
[2019-11-23] MEDS: MULTIVITAMINS/MINERALS TABLET PO SCH (07:45)
[2019-11-23] MEDS: CHLORDIAZEPOXIDE 25 MG CAPSULE PO SCH ×3 (07:45→20:24)
[2019-11-23] MEDS: POTASSIUM CHLORIDE 20 MEQ TAB.ER.PRT PO SCH ×2 (10:41→16:03)
[2019-11-23 13:18] VITALS: BP 104/72
[2019-11-23] MEDS ORDERED: LORazepam 1MG TABLET PO PRN (14:00)
[2019-11-23] MEDS ORDERED: LORazepam 0.5MG TABLET PO PRN (14:00)
[2019-11-23] MEDS ORDERED: POTASSIUM CHLORIDE 20 MEQ, MAGNESIUM SULFATE 1 GM, THIAMINE 200 MG, FOLIC ACID 1 MG, MV... IV SCH (15:30)
[2019-11-23] MEDS ORDERED: NICOTINE 7 MG/24 HR PATCH.TD24 TD SCH (20:00)
[2019-11-23] MEDS: METOPROLOL TARTRATE 50 MG TAB PO SCH (20:24)
[2019-11-23] MEDS: K-PHOS NEUTRAL 250MG TAB PO SCH (20:24)
[2019-11-23 20:54] VITALS: BP 131/91
[2019-11-23 21:10] VITALS: BP 117/77
[2019-11-24 00:48] VITALS: BP 168/105
[2019-11-24] MEDS: LORazepam 2 MG/ML, 1ML IV PRN ×2 (01:40→02:36)
[2019-11-24 02:30] VITALS: BP 138/93
[2019-11-24 03:55] VITALS: BP 142/100
[2019-11-24] MEDS: LORazepam 1MG TABLET PO PRN ×2 (03:57→05:25)
[2019-11-24 05:23] VITALS: BP 153/97
[2019-11-24] MEDS: PANTOPRAZOLE 40MG TABLET PO SCH (05:25)
[2019-11-24 06:51] LABS: ALANINE AMINOTRANSFERASE 67 U/L (12-78); ALBUMIN 3.3 g/dL (3.4-5.0); ANION GAP 9 mmol/L (5-15); CALCIUM 8.8 mg/dL (8.5-10.1); CHLORIDE 106 mmol/L (98-107)
[2019-11-24 06:54] LABS: ALKALINE PHOSPHATASE 119 U/L (45-117); BILIRUBIN,TOTAL 0.6 mg/dL (0.2-1.0); CREATININE 0.73 mg/dL (0.7-1.3); TOTAL PROTEIN 7.2 g/dL (6.4-8.2)
[2019-11-24 07:09] VITALS: BP 132/96
[2019-11-24] MEDS: CHLORDIAZEPOXIDE 25 MG CAPSULE PO SCH (07:42)
[2019-11-24] MEDS: METOPROLOL TARTRATE 50 MG TAB PO SCH (07:42)
[2019-11-24] MEDS: K-PHOS NEUTRAL 250MG TAB PO SCH (07:43)
[2019-11-24] MEDS ORDERED: MULTIVITAMINS/MINERALS TABLET PO SCH (09:00)
[2019-11-24] MEDS ORDERED: CALCIUM CARBONATE 500 MG TAB.CHEW PO SCH (09:00)
[2019-11-24] MEDS ORDERED: FOLIC ACID 1 MG TABLET PO SCH (09:00)
[2019-11-24] MEDS ORDERED: THIAMINE 100MG TABLET PO SCH (09:00)
[2019-11-24] MEDS ORDERED: POTASSIUM CHLORIDE 20 MEQ, MAGNESIUM SULFATE 1 GM, THIAMINE 200 MG, FOLIC ACID 1 MG, MV... IV SCH (14:00)
== END 2019-11-24 08:24 | disposition left against medical advice (07) | DRG 439 ==
LOC: ED 19:16 → EDIP 20:16 → 4WST 21:19
PROVIDERS: ADMIT Internal Medicine; ATTEND Internal Medicine
DX: K85.20 Alcohol induced acute pancreatitis without necrosis or infection (principal); F10.239 Alcohol dependence with withdrawal, unspecified; E83.39 Other disorders of phosphorus metabolism; K86.1 Other chronic pancreatitis; E83.51 Hypocalcemia; E87.6 Hypokalemia; F17.200 Nicotine dependence, unspecified, uncomplicated; I10 Essential (primary) hypertension; J44.9 Chronic obstructive pulmonary disease, unspecified; K21.9 Gastro-esophageal reflux disease without esophagitis; I48.91 Unspecified atrial fibrillation; K70.9 Alcoholic liver disease, unspecified; Y90.8 Blood alcohol level of 240 mg/100 ml or more; Z80.3 Family history of malignant neoplasm of breast; Z82.49 Family history of ischemic heart disease and other diseases of the circulatory system; Z88.5 Allergy status to narcotic agent; Z88.8 Allergy status to other drugs, medicaments and biological substances
CPT/HCPCS: 36415; 96374; 96375; 99285; J7042; 74176; 80048; 80053; 80076; 80307; 82150; 82330; 83690; 83735; 84100; 85025; 85610; G0378; J1170; J2405; J3411; J3475; J3480; J3486; C9113; J2060; J7030

== ENCOUNTER 2020-01-14 12:13 | Inpatient (IN) | payer MEDICAID ==
[~2020-01-14] VITALS: Ht 175.3 cm; Wt 71.1 kg
[~2020-01-14 12:13] MED LIST changes: +OMEP-110 PO; +SUCR1TAB33 PO
--- NOTE | 2020-01-14 12:21 | NUR ---
EKG IN TRIAGE
--- NOTE | 2020-01-14 12:25 | NUR ---
PATIENT HERE TODAY DUE TO FALL IN [place] ALMOST 1 WEEK AGO WHERE PATIENT HIT HIS HEAD. PATIENT HAD HEAD CAT SCAN DONE AT [facility] YESTERDAY 01/12, AND RECEIVED A PHONE CALL TODAY FROM THEIR OFFICE, AND WAS TOLD TO COME INTO EMERGENCY DEPARTMENT FOR A SMALL BRAIN BLEED SEEN ON IMAGING. PATIENT IS ACCOMPANIED BY SIGNIFICANT OTHER. A&OX4, DOES COMPLAIN OF SOME FORGETFULNESS SINCE THE FALL. PATIENT DENIES FERRIS, BUT DOES C/O OF 01/09 NECK PAIN. Addendum: 01/14/20 at 1234 by [email or web address] PATIENT ADMITS TO DRINKING ALCOHOL THE DAY OF THE FALL.
[2020-01-14] MEDS ORDERED: SODIUM CHLORIDE FLUSH 10ML SYR IVF ONE (13:00)
--- NOTE | 2020-01-14 13:14 | NUR ---
ERMD AT BEDSIDE FOR EVALUATION. 20 GAUGE IV STARTED IN LEFT HAND.
[2020-01-14 13:19] LABS: MD YES; MEAN CORPUSCULAR HEMOGLOBIN 32.2 pg (27.5-34.5); MEAN CORPUSCULAR HGB CONC 33.2 g/dL (33.2-36.2); MEAN PLATELET VOLUME 8.7 fL (7.4-10.4); PLATELET COUNT 91 x10^3/uL (130-400); RED BLOOD COUNT 4.61 x10^6/uL (4.38-5.82); RED CELL DISTRIBUTION WIDTH 17.8 % (9.4-14.8)
[2020-01-14 13:23] LABS: INTERNATIONAL NORMALIZED RATIO 0.97 (0.93-1.1)
[2020-01-14 13:24] LABS: ANION GAP 13 mmol/L (5-15); CALCIUM 8.3 mg/dL (8.5-10.1); CHLORIDE 102 mmol/L (98-107); CREATININE 0.71 mg/dL (0.7-1.3)
--- NOTE | 2020-01-14 13:25 | NUR ---
PATIENT TAKEN TO HEAD CT.
[2020-01-14 13:31] LABS: LYMPH#(MANUAL) 1.64 x10^3/uL (1-3.4); LYMPHS% (MANUAL) 31 % (22-44); MONOS#(MANUAL) 0.37 x10^3/uL (0.3-2.7); MONOS% (MANUAL) 7 % (2-9); REACTIVE LYMPHS # (MANUAL) 0.16 x10^3/uL (0-0); REACTIVE LYMPHS % (MANUAL) 3 % (0-0); SEG#(MANUAL) 3.13 x10^3/uL (1.8-6.8); SEGS% (MANUAL) 59 % (42-75)
[2020-01-14 13:32] LABS: <PLATELET ESTIMATE> DECREASED; <PLT MORPHOLOGY> NORMAL PLT MORPH; <RBC MORPHOLOGY> NORMAL
--- NOTE | 2020-01-14 13:36 | NUR ---
PATIENT BACK FROM CT, LYING IN GURNEY WITH SIGNIFICANT OTHER AT BEDSIDE. VITAL SIGNS WITHIN NORMAL LIMITS. NO FURTHER NEEDS AT THIS TIME.
--- NOTE | 2020-01-14 14:11 | NUR ---
BREAK RN- MD CONSULT TO CECILIA.
[2020-01-14 14:33] VITALS: BP 109/74
--- NOTE | 2020-01-14 14:34 | NUR ---
PATIENT REQUESTING FOOD, SPOKE WITH PROVIDER AND OKAY FOR PATIENT TO EAT. FOOD TRAY ORDERED, PATIENT RESTING IN GURNEY, CALL LIGHT WITHIN REACH. NO FURTHER NEEDS AT THIS TIME.
[2020-01-14] MEDS ORDERED: LORazepam 0.5MG TABLET PO PRN (15:30)
[2020-01-14] MEDS ORDERED: FOLIC ACID 5 MG/ML IM ONE (15:30)
[2020-01-14] MEDS ORDERED: LORazepam 2 MG/ML, 1ML IV PRN ×5 (15:30)
[2020-01-14] MEDS ORDERED: POTASSIUM CHLORIDE 20 MEQ, MAGNESIUM SULFATE 1 GM, MVI ADULT 10 ML, THIAMINE 200 MG, FO... IV SCH (15:30)
[2020-01-14] MEDS ORDERED: NICOTINE 14MG/24 HR PATCH.TD24 TD SCH (15:30)
[2020-01-14] MEDS ORDERED: LORazepam 1MG TABLET PO PRN ×4 (15:30)
[2020-01-14] MEDS ORDERED: THIAMINE 200 MG in SODIUM CHLORIDE 0.9% 50 ML IV ONE (15:30)
[2020-01-14] MEDS ORDERED: CHLORDIAZEPOXIDE 25 MG CAPSULE PO SCH ×2 (15:30)
--- NOTE | 2020-01-14 15:30 | NUR ---
REPORT CALLED TO CARLOS A YBARRA ON TELE 2.
[2020-01-14] MEDS ORDERED: CHLORDIAZEPOXIDE 25 MG CAPSULE ONE (15:51)
[2020-01-14] MEDS ORDERED: NICOTINE 14MG/24 HR PATCH.TD24 ONE (15:51)
--- NOTE | 2020-01-14 15:54 | NUR ---
THIAMINE IV AND RALLY BAG REQUESTED FROM PHARMACY. 50 MG LIBRIUM, NICOTINE PATCH AND IM FOLIC ACID ADMINISTERED. NO FURTHER NEEDS AT THIS TIME.
--- NOTE | 2020-01-14 16:18 | NUR ---
PATIENT TAKEN TO TELEMETRY 2 ON [facility] BY TRANSPORT STAFF, ALL PATIENT BELONGINGS AT SIDE, SPOUSE ACCOMPANIED PATIENT TO FLOOR.
== END 2020-01-14 17:59 | disposition left against medical advice (07) | DRG 84 ==
LOC: ED 13:21 → EDIP 14:02 → 4EST 16:25
PROVIDERS: ADMIT Internal Medicine; ATTEND Internal Medicine
DX: S06.5X9A Traumatic subdural hemorrhage with loss of consciousness of unspecified duration, initial encounter (principal); F10.129 Alcohol abuse with intoxication, unspecified; F41.1 Generalized anxiety disorder; I10 Essential (primary) hypertension; I48.91 Unspecified atrial fibrillation; J44.9 Chronic obstructive pulmonary disease, unspecified; W01.0XXA Fall on same level from slipping, tripping and stumbling without subsequent striking against object, initial encounter; G62.9 Polyneuropathy, unspecified; D69.6 Thrombocytopenia, unspecified; E87.6 Hypokalemia; F32.9 Major depressive disorder, single episode, unspecified; Y92.009 Unspecified place in unspecified non-institutional (private) residence as the place of occurrence of the external cause; Y99.8 Other external cause status; Y93.89 Activity, other specified
CPT/HCPCS: 36415; 70450; 71045; 80048; 82040; 85025; 85610; 85730; 93005; 96372; 96374; 99285; G0378

== ENCOUNTER 2020-02-04 08:58 | Emergency (ER) | payer MEDICAID ==
[~2020-02-04] VITALS: Ht 175.3 cm; Wt 71.1 kg
[~2020-02-04 08:58] MED LIST changes: -PANT40TA5 PO; +PANT40TA6 PO
--- NOTE | 2020-02-04 09:31 | NUR ---
PT CLOTHING REMOVED, PT IN HOSPITAL GOWN. SEIZURE PRECAUTIONS PLACED ON PT BED. AT BEDSIDE. PT CALM, A&OX4 AT THIS TIME. EKG HAS BEEN DONE. PT ON CARDIAC AND VITALS MONITORS. PT GIVEN WARM BLANKET.
--- NOTE | 2020-02-04 09:45 | NUR ---
PT IN CT
[2020-02-04] MEDS ORDERED: LORazepam 2 MG/ML, 1ML ONE (09:47)
[2020-02-04] MEDS ORDERED: SODIUM CHLORIDE FLUSH 10ML SYR IVF ONE (10:00)
[2020-02-04] MEDS ORDERED: LORazepam 2 MG/ML, 1ML IVPush ONE (10:00)
[2020-02-04] MEDS ORDERED: SODIUM CHLORIDE 0.9% 1,000ML IVBOLUS ONE (10:00)
--- NOTE | 2020-02-04 10:01 | NUR ---
PT MEDICATED PER EMAR. ORDERED FLUIDS INFUSING. WILL CONTINUE TO MONITOR.
[2020-02-04 10:15] LABS: MEAN CORPUSCULAR HEMOGLOBIN 32.6 pg (27.5-34.5); MEAN CORPUSCULAR HGB CONC 32.7 g/dL (33.2-36.2); MEAN CORPUSCULAR VOLUME 99.7 fL (81-97); MEAN PLATELET VOLUME 8.1 fL (7.4-10.4); PLATELET COUNT 163 x10^3/uL (130-400); RED BLOOD COUNT 4.66 x10^6/uL (4.38-5.82); RED CELL DISTRIBUTION WIDTH 16.6 % (9.4-14.8)
[2020-02-04 10:21] LABS: ALANINE AMINOTRANSFERASE 80 U/L (12-78); ANION GAP 8 mmol/L (5-15); CALCIUM 9.2 mg/dL (8.5-10.1); CHLORIDE 106 mmol/L (98-107)
[2020-02-04 10:24] LABS: ALKALINE PHOSPHATASE 79 U/L (45-117); BILIRUBIN,TOTAL 0.5 mg/dL (0.2-1.0); MD YES; TOTAL PROTEIN 7.2 g/dL (6.4-8.2)
[2020-02-04 10:51] LABS: BAND#(MANUAL) 0.07 x10^3/uL; BANDS%(MANUAL) 1 % (0-7); LYMPH#(MANUAL) 0.67 x10^3/uL (1-3.4); LYMPHS% (MANUAL) 10 % (22-44); MONOS#(MANUAL) 0.54 x10^3/uL (0.3-2.7); MONOS% (MANUAL) 8 % (2-9); REACTIVE LYMPHS # (MANUAL) 0.07 x10^3/uL (0-0); REACTIVE LYMPHS % (MANUAL) 1 % (0-0); SEG#(MANUAL) 5.36 x10^3/uL (1.8-6.8); SEGS% (MANUAL) 80 % (42-75)
[2020-02-04 10:52] LABS: <PLATELET ESTIMATE> ADEQUATE; <PLT MORPHOLOGY> NORMAL PLT MORPH; ANISOCYTOSIS 1+
[2020-02-04 10:58] LABS: INTERNATIONAL NORMALIZED RATIO 1.01 (0.93-1.1); PROTHROMBIN TIME 10.4 Seconds (9.6-11.5)
[2020-02-04 11:54] LABS: AMPHETAMINE SCREEN, URINE Negative (Negative); BARBITURATE SCREEN, URINE Negative (Negative); BENZODIAZEPINE SCREEN, URINE Positive (Negative); CANNABINOID SCREEN, URINE Negative (Negative); COCAINE SCREEN, URINE Negative (Negative); METHADONE SCREEN, URINE Negative (Negative); OPIATE SCREEN, URINE Negative (Negative)
[2020-02-04] MEDS ORDERED: CHLORDIAZEPOXIDE 25 MG CAPSULE ONE (11:57)
[2020-02-04] MEDS ORDERED: CHLORDIAZEPOXIDE 25 MG CAPSULE PO ONE (12:00)
--- NOTE | 2020-02-04 12:06 | NUR ---
PT MEDICATED PER EMAR. PT RESTING CALMLY IN BED. NO STATED COMPLAINTS AT THIS TIME. PT STATED HE FEELS MUCH BETTER. AT BEDSIDE. PT GIVEN LIST OF [facility] PROVIDERS PER PT REQUEST.
--- NOTE | 2020-02-04 12:38 | NUR ---
NO SEIZURE ACTIVITY OBSERVED AT THIS TIME. PT STATED HE ONLY NOTICES IT WHEN HE BENDS OVER.
[2020-02-04 14:17] VITALS: BP 137/92
== END 2020-02-04 14:19 | disposition home or self-care (01) ==
LOC: ED 09:34
DX: R56.9 Unspecified convulsions (principal); F10.239 Alcohol dependence with withdrawal, unspecified; I62.03 Nontraumatic chronic subdural hemorrhage; R00.0 Tachycardia, unspecified; I10 Essential (primary) hypertension; J44.9 Chronic obstructive pulmonary disease, unspecified; I48.91 Unspecified atrial fibrillation
CPT/HCPCS: 36415; 70450; 71045; 72125; 80053; 80307; 85025; 85610; 85730; 93005; 96361; 96374; 99285; J2060; J7030

== ENCOUNTER → 2020-02-17 | Outpatient (CLI) | payer MEDICAID | END | disposition home or self-care (01) | LOC: RAD 17:07 | PROVIDERS: ATTEND Physician Assistant | DX: S06.5X5A Traumatic subdural hemorrhage with loss of consciousness greater than 24 hours with return to pre-existing conscious level, initial encounter (principal); X58.XXXA Exposure to other specified factors, initial encounter; Y93.89 Activity, other specified; Y92.89 Other specified places as the place of occurrence of the external cause; Y99.8 Other external cause status | CPT/HCPCS: 70450 ==

== ENCOUNTER → 2020-02-24 | Outpatient (CLI) | payer MEDICAID | END | disposition home or self-care (01) | LOC: CFH 10:16 | PROVIDERS: ATTEND Physician Assistant | DX: M47.812 Spondylosis without myelopathy or radiculopathy, cervical region (principal); M48.02 Spinal stenosis, cervical region; M25.78 Osteophyte, vertebrae | CPT/HCPCS: 72141 ==

== ENCOUNTER → 2020-04-18 | Outpatient (CLI) | payer MEDICAID | END | disposition home or self-care (01) | LOC: CFH 08:34 | PROVIDERS: ATTEND Neurological Surgery | DX: S06.5X5A Traumatic subdural hemorrhage with loss of consciousness greater than 24 hours with return to pre-existing conscious level, initial encounter (principal); J34.1 Cyst and mucocele of nose and nasal sinus; X58.XXXA Exposure to other specified factors, initial encounter; Y93.89 Activity, other specified; Y92.89 Other specified places as the place of occurrence of the external cause; Y99.8 Other external cause status | CPT/HCPCS: 70450 ==